=== PATIENT | female | born 1945 | race Caucasian/White ===

== ENCOUNTER 2022-01-14 12:54 | Emergency (ER) | payer MEDICARE, OTHER ==
[2022-01-14 13:13] LABS: BASOPHILS # (AUTO) 0.1 10^3/uL (0.0-0.1); BASOPHILS % (AUTO) 1.1 %; EOSINOPHILS # (AUTO) 0.1 10^3/uL (0.0-0.7); EOSINOPHILS % (AUTO) 1.5 %; HCT - HEMATOCRIT 43.4 % (37.0-47.0); HGB - HEMOGLOBIN 14.2 g/dL (12.0-16.0); LYMPHOCYTES # (AUTO) 1.4 10^3/uL (1.5-3.5); MEAN CORPUSCULAR HEMOGLOBIN 30.1 pg (27.0-31.0); MEAN CORPUSCULAR HGB CONC 32.7 g/dL (32.0-36.0); MEAN CORPUSCULAR VOLUME 92.1 fL (81.0-99.0); MEAN PLATELET VOLUME 11.3 fL (7.9-10.8); MONOCYTES # (AUTO) 0.8 10^3/uL (0.0-1.0); NEUTROPHILS # (AUTO) 5.9 10^3/uL (1.5-6.6); NEUTROPHILS % (AUTO) 70.2 %; PLT - PLATELET COUNT 228 10^3/uL (130-450); RED BLOOD COUNT 4.71 10^6/uL (4.20-5.40); RED CELL DISTRIBUTION WIDTH 13.8 % (12.0-15.0); WHITE BLOOD COUNT 8.4 x10^3/uL (4.8-10.8)
[2022-01-14] MEDS ORDERED: diltiaZEM INJ 5 MG/ML VIAL IVP STA (13:18)
--- NOTE | 2022-01-14 13:19 | ED Physician Documentation ---
PD HPI DYSPNEA - Stated complaint Stated Complaint: IRREG HEART BEAT - Chief complaint Chief Complaint: Cardiac - History obtained from History obtained from: Patient - Additional information Additional information: 76-year-old woman with history of poor vision and eyesight presents by private vehicle for the evaluation of 4 days of shortness of breath. Especially exertional. No history of heart problems. No pedal edema. No history of hypertension. Review of Systems Ten Systems: 10 systems reviewed and negative Constitutional: reports: Fatigue Cardiac: denies: Chest pain / pressure, Palpitations, Pedal edema, Calf pain Respiratory: reports: Dyspnea. denies: Cough PD PAST MEDICAL HISTORY - Present Medications Home Medications: Ambulatory Orders Medication Instructions Recorded Confirmed Apixaban [Eliquis] 1 tab PO BID #60 tablet 01/14/22 dilTIAZem HCL [Diltiazem 24Hr ER 120 mg PO DAILY #30 cap 01/14/22 (Xr)] - Allergies Allergies/Adverse Reactions: Allergies Allergy/AdvReac Type Severity Reaction Status Date / Time No Known Drug Allergies Allergy Verified 01/14/22 13:00 PD ED PE NORMAL - Vitals Vital signs reviewed: Yes (A. fib on the monitor) - General General: Alert and oriented X 3, No acute distress - Neck Neck: Supple, no meningeal sign, No bony TTP - Cardiac Cardiac: Other (Rapid and irregular without murmur) - Respiratory Respiratory: No respiratory distress, Clear bilaterally - Abdomen Abdomen: Non tender - Derm Derm: Normal color, Warm and dry - Extremities Extremities: No edema, No calf tenderness / cord - Neuro Neuro: Alert and oriented X 3, Normal speech Results - Vitals Vitals: Vital Signs - 24 hr 01/14/22 01/14/22 01/14/22 12:55 13:00 13:30 Temperature 36.1 C L 36.5 C Heart Rate 156 H 156 H 86 Respiratory 18 18 17 Rate Blood Pressure 138/108 H 138/108 H 116/74 O2 Saturation 97 97 96 01/14/22 14:00 Temperature Heart Rate 95 Respiratory 24 Rate Blood Pressure 130/100 H O2 Saturation 96 Oxygen O2 Source Room air - EKG (time done) 1310 Rate: Rate (enter#) (138) Rhythm: Atrial fibrillation [place]: Normal QRS: LVH Ischemia: Normal ST segments. No: Non specific changes Computer interpretation: Agree with computer - Labs Labs: Laboratory Tests 01/14/22 01/14/22 01/14/22 13:08 13:08 13:08 WBC 8.4 RBC 4.71 Hgb 14.2 Hct 43.4 MCV 92.1 MCH 30.1 MCHC 32.7 RDW 13.8 Plt Count 228 MPV 11.3 H Neut # (Auto) 5.9 Lymph # (Auto) 1.4 L [place] # (Auto) 0.8 Eos # (Auto) 0.1 Baso # (Auto) 0.1 Absolute Nucleated RBC 0.00 Nucleated RBC % 0.0 PT 15.4 H INR 1.4 H Sodium 138 Potassium 4.0 Chloride 106 Carbon Dioxide 20 L Anion Gap 12.0 BUN 24 H Creatinine 1.2 H Estimated GFR (MDRD) 44 L Glucose 122 H Calcium 9.4 Magnesium 2.0 Total Bilirubin 1.1 H AST 17 ALT 18 Alkaline Phosphatase 42 Total Protein 7.1 Albumin 4.2 Globulin 2.9 Albumin/Globulin Ratio 1.4 TSH 01/14/22 13:08 WBC RBC Hgb Hct MCV MCH MCHC RDW Plt Count MPV Neut # (Auto) Lymph # (Auto) [place] # (Auto) Eos # (Auto) Baso # (Auto) Absolute Nucleated RBC Nucleated RBC % PT INR Sodium Potassium Chloride Carbon Dioxide Anion Gap BUN Creatinine Estimated GFR (MDRD) Glucose Calcium Magnesium Total Bilirubin AST ALT Alkaline Phosphatase Total Protein Albumin Globulin Albumin/Globulin Ratio TSH 3.45 PD MEDICAL DECISION MAKING - ED course ED course: This is a 76-year-old woman who presents with new onset rapid A. fib of 4 days duration by history. As such she is not a candidate for consideration for ED cardioversion given the timeframe. 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 Fairly easy rate control, she is rate controlled after 10 mg of Cardizem IV. I spoke with her physician, Dr. Prajapati by phone who agrees with starting a DOAC and 120 mg of long-acting Cardizem daily. She will arrange for follow-up and echocardiography. Departure - Departure Disposition: 01 Home, Self Care Clinical Impression: Atrial fibrillation Qualifiers: Atrial fibrillation type: persistent (not longstanding) Qualified Code(s): I48.19 - Other persistent atrial fibrillation; I48.1 - Persistent atrial fibrillation Condition: Good Record reviewed to determine appropriate education?: Yes Instructions: Atrial Fibrillation Dc Prescriptions: dilTIAZem HCL [Diltiazem 24Hr ER (Xr)] 120 mg PO DAILY #30 cap Apixaban [Eliquis] 1 tab PO BID #60 tablet Comments: Follow-up with Dr. Prajapati. I sent your prescriptions to [facility] in [place]. We are starting something to keep your heart rate from being too high and a blood thinner. Return for new or worsening symptoms. I expect Dr. Prajapati will likely schedule you for an echocardiogram, and ultrasound of your heart.
[2022-01-14 13:22] LABS: INR 1.4 (0.8-1.2); PT - PROTHROMBIN TIME 15.4 secs (9.9-12.6)
[2022-01-14 13:25] LABS: ALBUMIN 4.2 g/dL (3.2-5.5); ALBUMIN/GLOBULIN RATIO 1.4 (1.0-2.2); BILIRUBIN,TOTAL 1.1 mg/dL (0.2-1.0); CALCIUM 9.4 mg/dL (8.5-10.3); CREATININE 1.2 mg/dL (0.4-1.0); TOTAL PROTEIN 7.1 g/dL (6.7-8.2)
[2022-01-14 14:08] VITALS: BP 130/100
== END 2022-01-14 14:43 | disposition home or self-care (01) ==
LOC: ED 12:54
DX: I48.19 Other persistent atrial fibrillation (principal); Z79.01 Long term (current) use of anticoagulants
CPT/HCPCS: 36415; 80053; 83735; 84443; 85025; 85610; 93005; 96374; 99283

== ENCOUNTER 2022-03-02 14:26 | Emergency (ER) | payer MEDICARE, OTHER ==
[2022-03-02] MEDS ORDERED: diltiaZEM INJ 5 MG/ML VIAL IVP STA ×2 (14:52→16:45)
--- NOTE | 2022-03-02 14:58 | XRAY Report ---
PROCEDURE: Chest 1 View X-Ray INDICATIONS: Chest pain TECHNIQUE: One view of the chest was acquired. COMPARISON: None FINDINGS: Exam limited by patient positioning and AP portable technique. Cardiomegaly with increased central/perihilar interstitial markings and cephalization of pulmonary ve ssels. Although not entirely definitive there is blunting of the right costophrenic angle with hazy v eiling opacity overlying the right lung base suggestive of a possible small pleural effusion. The ple ural spaces are otherwise clear. IMPRESSION: Cardiomegaly with findings suggestive of moderate cardiogenic pulmonary edema and possible small righ t pleural effusion. Reviewed by: Yasir Alfred MD on 03/02/2022 2:56 PM PDT Approved by: Yasir Alfred MD on 03/02/2022 2:56 PM PDT Station ID: [id number]
--- NOTE | 2022-03-02 15:00 | ED Physician Documentation ---
History of Present Illness - Stated complaint Stated Complaint: CP,RAPID HEART RATE,ABD PX - Chief complaint Chief Complaint: Cardiac - Additonal information Additional information: 76-year-old female presents emergency department for evaluation of 2 to 3 days of shortness of air as well as upper abdominal pain. She was seen in this emergency department late December and diagnosed with atrial fib of unknown duration. Started on Cardizem as well as Eliquis. Patient states that she felt one of the medications helped her but the other put her over the edge. It seems that she has not taken the Eliquis for about 2 weeks. 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 She is however alert and speaking full sentences. On the monitor she has A. fib RVR with a rate of 150-160. Nursing staff establishing an IV. Cardizem is ordered. In further conversation with the it appears that when the patient went to have her diltiazem refilled her primary care provider increased her dose from 120 daily to two 120mg extended release capsules daily. It is this dosing that sent the patient over the edge and caused increased dizziness which she stopped taking about 10 days ago. Review of Systems Unable to obtain: Confused Constitutional: denies: Fever, Chills Cardiac: reports: Chest pain / pressure, Palpitations. denies: Pedal edema, Calf pain Respiratory: reports: Reviewed and negative GI: reports: Reviewed and negative : reports: Reviewed and negative Skin: denies: Rash, Lesions Neurologic: denies: Generalized weakness, Focal weakness, Numbness, Headache, Head injury PD PAST MEDICAL HISTORY - Present Medications Home Medications: Ambulatory Orders Medication Instructions Recorded Confirmed Apixaban [Eliquis] 1 tab PO BID #60 tablet 01/14/22 03/02/22 Diltiazem HCl [Cardizem] 120 mg PO DAILY #30 tablet 03/02/22 Furosemide [Lasix] 20 mg PO DAILY 3 Days #3 tablet 03/02/22 dilTIAZem HCL [Diltiazem 24Hr ER 240 mg PO DAILY 03/02/22 03/02/22 (Xr)] - Allergies Allergies/Adverse Reactions: Allergies Allergy/AdvReac Type Severity Reaction Status Date / Time No Known Drug Allergies Allergy Verified 03/02/22 14:37 PD ED PE NORMAL - General General: Alert and oriented X 3, No acute distress - HEENT HEENT: Atraumatic, Moist mucous membranes - Neck Neck: Supple, no meningeal sign, No adenopathy - Cardiac Cardiac: No murmur. 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 Eye Opening: Spontaneous Motor: Obeys Commands Verbal: Oriented GCS Score: 15 Results - Vitals Vitals: Vital Signs - 24 hr 03/02/22 03/02/22 03/02/22 14:29 15:19 15:30 Temperature 36.5 C Heart Rate 152 H 90 87 Respiratory 18 16 24 Rate Blood Pressure 122/96 H 128/102 H 135/101 H O2 Saturation 97 96 97 03/02/22 03/02/22 03/02/22 16:00 16:30 17:00 Temperature 36.6 C Heart Rate 93 102 H 111 H Respiratory 23 16 16 Rate Blood Pressure 121/90 H 131/95 H 128/110 H O2 Saturation 97 97 98 03/02/22 03/02/22 17:30 18:37 Temperature Heart Rate 89 84 Respiratory 14 24 Rate Blood Pressure 127/97 H 118/89 H O2 Saturation 98 96 Oxygen O2 Source Room air - EKG (time done) 1436 Rate: Rate (enter#) (135) Rhythm: Atrial fibrillation [place]: Normal QRS: Normal Ischemia: Normal ST segments Compare to prior EKG: Unchanged from prior EKG Computer interpretation: Agree with computer - Labs Labs: Laboratory Tests 03/02/22 03/02/22 03/02/22 15:00 15:00 15:00 WBC 8.0 RBC 4.77 Hgb 14.1 Hct 43.8 MCV 91.8 MCH 29.6 MCHC 32.2 RDW 14.6 Plt Count 199 MPV 12.2 H Neut # (Auto) 5.7 Lymph # (Auto) 1.4 L [place] # (Auto) 0.8 Eos # (Auto) 0.1 Baso # (Auto) 0.1 Absolute Nucleated RBC 0.00 Nucleated RBC % 0.0 Sodium 139 Potassium 3.9 Chloride 106 Carbon Dioxide 21 Anion Gap 12.0 BUN 23 H Creatinine 1.3 H Estimated GFR (MDRD) 40 L Glucose 105 H Calcium 9.6 Total Bilirubin 1.3 H AST 31 ALT 30 Alkaline Phosphatase 44 Troponin I High Sens 65.4 H* B-Natriuretic Peptide Total Protein 6.7 Albumin 4.1 Globulin 2.6 Albumin/Globulin Ratio 1.6 Lipase 34 03/02/22 03/02/22 15:00 17:00 WBC RBC Hgb Hct MCV MCH MCHC RDW Plt Count MPV Neut # (Auto) Lymph # (Auto) [place] # (Auto) Eos # (Auto) Baso # (Auto) Absolute Nucleated RBC Nucleated RBC % Sodium Potassium Chloride Carbon Dioxide Anion Gap BUN Creatinine Estimated GFR (MDRD) Glucose Calcium Total Bilirubin AST ALT Alkaline Phosphatase Troponin I High Sens 66.5 H* B-Natriuretic Peptide 1493 H Total Protein Albumin Globulin Albumin/Globulin Ratio Lipase - Rads (name of study) cxr Radiology: Final report received (Cardiomegaly with findings suggestive of moderate cardiogenic pulmonary edema and possible small right pleural effusion) PD MEDICAL DECISION MAKING - ED course Complexity details: reviewed results, re-evaluated patient, considered differential, d/w patient ED course: 76-year-old female presents emergency department for evaluation of 2 to 3 days of worsening dyspnea. She was diagnosed with atrial fibrillation in late December. She was started on Cardizem as well as Eliquis. When she saw her primary care provider in follow-up the Cardizem was doubled. Following this patient found that she was extremely dizzy and "fell off." Therefore about 10 days ago she stopped taking both the Eliquis and the Cardizem. Over the last 3 days increasing dyspnea especially with ambulation. On presentation she presents with A. fib RVR heart rate in the 150s. Room air saturations at rest are about 96% and no obvious dyspnea or tachypnea. Screening labs are most significant for an elevated BNP of nearly 1500. No previous for comparison. Her initial high-sensitivity troponin is 65. On report it is 66. Essentially static. I suspect this is a demand ischemia. Chest x-ray is consistent with early CHF and volume overload. Patient was administered 20 mg of Lasix. She was also administered 10 mg of diltiazem which promptly brought her heart rate into the 90s. After a period of rest here in the emergency department of about 90 minutes we did try the patient ambulating in the airway. She did not become hypoxic however she immediately became rather tachycardic in the 120s to the 140s and very dyspneic and thus had to return to bed shortly. Unfortunately there are no beds available at this time for admission. Patient will remain in this emergency department while she continues to diurese. An additional dose of diltiazem 10 mg IV has been ordered as well as her routine dose of 120 mg orally. We will attempt to ambulate her a little later this afternoon and if better tolerated can then consider discharge home. If she remains in the emergency department overnight an echocardiogram will be ordered for the a.m. 1829: I have been notified by nursing staff that following the oral dose of diltiazem the patient was able to adequately ambulate the full length of the hallway without any significant dyspnea. Her heart rate did increase into the 130s while ambulating but again it was well-tolerated. When she returned to bed her heart rate really turned to the 80s and 90s but remained in atrial for. At this point patient is stable for discharge home. She will be resumed on 120 mg of Cardizem daily as well as her Eliquis. Given the findings of volume overload on the chest x-ray an additional 3 days of Lasix will be sent to the pharmacy. She is encouraged close follow-up with her primary care provider Dr. Prajapati she should obtain an echocardiogram as an outpatient to further evaluate her heart failure. Departure - Departure Disposition: 01 Home, Self Care Clinical Impression: Atrial fibrillation with rapid ventricular response, Elevated brain natriuretic peptide (BNP) level, Elevated troponin Congestive heart failure Qualifiers: Heart failure type: unspecified Heart failure chronicity: acute Qualified Code(s): I50.9 - Heart failure, unspecified Dyspnea Qualifiers: Dyspnea type: dyspnea on exertion Qualified Code(s): R06.00 - Dyspnea, unsp ecified Instructions: Atrial Fibrillation Dc Prescriptions: Diltiazem HCl [Cardizem] 120 mg PO DAILY #30 tablet Furosemide [Lasix] 20 mg PO DAILY 3 Days #3 tablet Comments: Arin was seen today in the emergency department because she has been very short of breath and dizzy the last few days. She had stopped taking her diltiazem. It appears that the dose that Dr. Prajapati ordered was not well- tolerated. Because she stopped taking the diltiazem she has developed a mild form of heart failure. I would like her to fill the prescription for the Lasix and take every day for the next 3 days only. This will cause her to pee more. 9 she should resume taking the diltiazem 120 mg only once daily. She should also resume taking the Eliquis this is the blood thinner to help prevent clots and strokes and atrial fibrillation. Please discuss this ED visit with Dr. Prajapati. She should be referred for an outpatient echocardiogram for further evaluation of her heart.
[2022-03-02 15:15] LABS: BASOPHILS # (AUTO) 0.1 10^3/uL (0.0-0.1); EOSINOPHILS # (AUTO) 0.1 10^3/uL (0.0-0.7); EOSINOPHILS % (AUTO) 1.6 %; HCT - HEMATOCRIT 43.8 % (37.0-47.0); HGB - HEMOGLOBIN 14.1 g/dL (12.0-16.0); LYMPHOCYTES # (AUTO) 1.4 10^3/uL (1.5-3.5); LYMPHOCYTES % (AUTO) 16.9 %; MEAN CORPUSCULAR HEMOGLOBIN 29.6 pg (27.0-31.0); MEAN CORPUSCULAR HGB CONC 32.2 g/dL (32.0-36.0); MEAN CORPUSCULAR VOLUME 91.8 fL (81.0-99.0); MEAN PLATELET VOLUME 12.2 fL (7.9-10.8); MONOCYTES # (AUTO) 0.8 10^3/uL (0.0-1.0); MONOCYTES % (AUTO) 10.1 %; NEUTROPHILS # (AUTO) 5.7 10^3/uL (1.5-6.6); NEUTROPHILS % (AUTO) 70.3 %; PLT - PLATELET COUNT 199 10^3/uL (130-450); RED BLOOD COUNT 4.77 10^6/uL (4.20-5.40); RED CELL DISTRIBUTION WIDTH 14.6 % (12.0-15.0)
[2022-03-02] MEDS ORDERED: FUROSEMIDE 20 MG/2 ML VIAL IVP STA (15:33)
[2022-03-02 15:47] LABS: ALBUMIN 4.1 g/dL (3.2-5.5); ALBUMIN/GLOBULIN RATIO 1.6 (1.0-2.2); BILIRUBIN,TOTAL 1.3 mg/dL (0.2-1.0); CALCIUM 9.6 mg/dL (8.5-10.3); CREATININE 1.3 mg/dL (0.4-1.0); POTASSIUM 3.9 mmol/L (3.5-5.0); TOTAL PROTEIN 6.7 g/dL (6.7-8.2)
[2022-03-02] MEDS ORDERED: diltiaZEM 30 MG TABLET PO STA (17:06)
[2022-03-02] MEDS ORDERED: APIXABAN 5 MG TABLET PO STA (17:14)
[2022-03-02 19:30] VITALS: BP 108/82
== END 2022-03-02 19:29 | disposition home or self-care (01) ==
LOC: ED 14:26
DX: I48.20 Chronic atrial fibrillation, unspecified (principal); R06.09 Other forms of dyspnea; I50.9 Heart failure, unspecified; R77.8 Other specified abnormalities of plasma proteins; R79.89 Other specified abnormal findings of blood chemistry
CPT/HCPCS: 36415; 71045; 80053; 83690; 83880; 84484; 85025; 93005; 96374; 96375; 96376; 99284; A9270

== ENCOUNTER 2022-05-21 07:50 | Outpatient (CLI) | payer MEDICARE, OTHER | END 2022-05-21 07:51 | disposition critical access hospital (66) | LOC: EMS 07:50 | DX: I48.91 Unspecified atrial fibrillation (principal) | CPT/HCPCS: A0425; A0429 ==

== ENCOUNTER 2022-05-21 08:03 | Emergency (ER) | payer MEDICARE, OTHER ==
[2022-05-21] MEDS ORDERED: diltiaZEM INJ 5 MG/ML VIAL IVP STA (08:37)
[2022-05-21 09:00] LABS: BASOPHILS # (AUTO) 0.1 10^3/uL (0.0-0.1); BASOPHILS % (AUTO) 0.8 %; EOSINOPHILS % (AUTO) 0.4 %; HCT - HEMATOCRIT 45.2 % (37.0-47.0); HGB - HEMOGLOBIN 15.1 g/dL (12.0-16.0); LYMPHOCYTES # (AUTO) 0.9 10^3/uL (1.5-3.5); LYMPHOCYTES % (AUTO) 12.6 %; MEAN CORPUSCULAR HEMOGLOBIN 30.3 pg (27.0-31.0); MEAN CORPUSCULAR HGB CONC 33.4 g/dL (32.0-36.0); MEAN CORPUSCULAR VOLUME 90.8 fL (81.0-99.0); MONOCYTES # (AUTO) 0.7 10^3/uL (0.0-1.0); MONOCYTES % (AUTO) 9.4 %; NEUTROPHILS # (AUTO) 5.6 10^3/uL (1.5-6.6); NEUTROPHILS % (AUTO) 76.5 %; PLT - PLATELET COUNT 228 10^3/uL (130-450); RED BLOOD COUNT 4.98 10^6/uL (4.20-5.40); RED CELL DISTRIBUTION WIDTH 15.9 % (12.0-15.0); WHITE BLOOD COUNT 7.3 x10^3/uL (4.8-10.8)
--- NOTE | 2022-05-21 09:05 | ED Physician Documentation ---
History of Present Illness - Stated complaint Stated Complaint: SOA/AFIB - Chief complaint Chief Complaint: Cardiac - History obtained from History obtained from: Patient - History of Present Illness Timing: How many days ago (Several days) Pain level max: 1 Pain level now: 0 - Additonal information Additional information: Patient is a 77-year-old female who presents to the emergency department stating she has a history of atrial fibrillation as well as heart failure. She had been on Lasix and diltiazem, but she felt she was not tolerating the diltiazem well so they changed her to metoprolol. She has been off of her medications for several days, but did take a dose of metoprolol last night. She states that she is mainly sitting up in a recliner. Having increased difficulty with lying flat. Worse with lying down, better sitting up. No fevers. No cough. States had a small amount of chest pressure last night, lasted for 1 to 2 minutes. Center of the chest, nonradiating. She states that the pressure was "very slight". Review of Systems Constitutional: denies: Fever, Chills Respiratory: denies: Cough GI: denies: Nausea, Vomiting, Diarrhea Skin: denies: Rash Musculoskeletal: denies: Neck pain, Back pain Neurologic: denies: Headache PD PAST MEDICAL HISTORY - Past Medical History Past Medical History: Yes Cardiovascular: Congestive heart failure, Atrial fibrillation Other Past Medical History: Legally blind, hard of hearing - Present Medications Home Medications: Ambulatory Orders Medication Instructions Recorded Confirmed Apixaban [Eliquis] 1 tab PO BID #60 tablet 01/14/22 03/02/22 Diltiazem HCl [Cardizem] 120 mg PO DAILY #30 tablet 03/02/22 Furosemide [Lasix] 20 mg PO DAILY 3 Days #3 tablet 03/02/22 dilTIAZem HCL [Diltiazem 24Hr ER 240 mg PO DAILY 03/02/22 03/02/22 (Xr)] diltiaZEM [Cardizem] 30 mg PO Q8H #90 tablet 05/21/22 - Allergies Allergies/Adverse Reactions: Allergies Allergy/AdvReac Type Severity Reaction Status Date / Time No Known Drug Allergies Allergy Verified 03/02/22 14:37 - Living Situation Living Arrangement: reports: At home - Social History Does the pt have substance abuse?: No PD ED PE NORMAL - Vitals Vital signs reviewed: Yes - General General: Alert and oriented X 3, No acute distress - HEENT HEENT: PERRL, Moist mucous membranes - Neck Neck: Supple, no meningeal sign - Cardiac Cardiac: Other (Irregular, tachycardic) - Respiratory Respiratory: No respiratory distress, Other (Mild rhonchi bilaterally) - Abdomen Abdomen: Soft, Non tender, Non distended - Derm Derm: Warm and dry, No rash - Extremities Extremities: No calf tenderness / cord, Other (2+ bilateral lower extremity pitting edema) - Neuro Neuro: Alert and oriented X 3 - Psych Psych: Normal mood, Normal affect Results - Vitals Vitals: Vital Signs - 24 hr 05/21/22 05/21/22 05/21/22 08:10 10:41 11:50 Temperature 36.6 C Heart Rate 126 H 93 96 Respiratory 26 H 11 L 19 Rate Blood Pressure 117/98 H 120/97 H 121/97 H O2 Saturation 98 99 96 Oxygen O2 Source Room air - EKG (time done) 0859 Rate: Rate (enter#) (123) Rhythm: Atrial fibrillation [place]: Normal QRS: LVH Ischemia: Non specific changes - Labs Labs: Laboratory Tests 05/21/22 05/21/22 05/21/22 08:54 08:54 08:54 WBC 7.3 RBC 4.98 Hgb 15.1 Hct 45.2 MCV 90.8 MCH 30.3 MCHC 33.4 RDW 15.9 H Plt Count 228 MPV 12.0 H Neut # (Auto) 5.6 Lymph # (Auto) 0.9 L [place] # (Auto) 0.7 Eos # (Auto) 0.0 Baso # (Auto) 0.1 Absolute Nucleated RBC 0.00 Nucleated RBC % 0.0 Sodium 138 Potassium 3.8 Chloride 109 Carbon Dioxide 18 L Anion Gap 11.0 BUN 30 H Creatinine 1.4 H Estimated GFR (MDRD) 37 L Glucose 107 H Calcium 9.7 Total Bilirubin 1.3 H AST 42 ALT 33 Alkaline Phosphatase 52 Troponin I High Sens 28.1 H* B-Natriuretic Peptide Total Protein 6.3 L Albumin 4.0 Globulin 2.3 Albumin/Globulin Ratio 1.7 Lipase 36 05/21/22 08:54 WBC RBC Hgb Hct MCV MCH MCHC RDW Plt Count MPV Neut # (Auto) Lymph # (Auto) [place] # (Auto) Eos # (Auto) Baso # (Auto) Absolute Nucleated RBC Nucleated RBC % Sodium Potassium Chloride Carbon Dioxide Anion Gap BUN Creatinine Estimated GFR (MDRD) Glucose Calcium Total Bilirubin AST ALT Alkaline Phosphatase Troponin I High Sens B-Natriuretic Peptide 3380 H Total Protein Albumin Globulin Albumin/Globulin Ratio Lipase - Rads (name of study) cxr Radiology: Final report received, EMP read contemporaneously, See rad report (Costophrenic angle blunting consistent with minimal effusions. ) PD MEDICAL DECISION MAKING - ED course Complexity details: reviewed results, re-evaluated patient, considered differential, d/w patient ED course: 77-year-old female with atrial fibrillation with rapid ventricular response as well as what appears to be a CHF exacerbation. She has been off all of her medications for a while. She is supposed to resume her Lasix today. Given a dose here. No hypoxia or respiratory distress. She was also given a dose of diltiazem and her heart rate was well controlled. The patient states that she w ishes to be trialed back on short acting Cardizem as she feels that she tolerated that better than metoprolol. We will place her back on short acting diltiazem. Patient is ambulating without difficulty. Patient is well- appearing, nontoxic. Patient counseled regarding signs and symptoms for which I believe and urgent re-evaluation would be necessary. Patient with good understanding of and agreement to plan and is comfortable going home at this time This document was made in part using voice recognition software. While efforts are made to proofread this document, sound alike and grammatical errors may occur. Departure - Departure Disposition: 01 Home, Self Care Clinical Impression: Atrial fibrillation with rapid ventricular response Congestive heart failure Qualifiers: Heart failure type: unspecified Heart failure chronicity: acute on chronic Qualified Code(s): I50.9 - Heart failure, unspecified Condition: Good Instructions: ED Afib, ED CHF General Follow-Up: Trina Prajapati MD [Primary Care Provider] - Within 1 week Prescriptions: diltiaZEM [Cardizem] 30 mg PO Q8H #90 tablet Comments: Your medications were sent to [facility] in [place]. We will trial you back on the short acting diltiazem rather than your metoprolol. So please stop the metoprolol. You also need to start the Lasix that you are doctor has prescribed you. This will help to decrease the fluid buildup. Please return if you worsen. Discharge Date/Time: 05/21/22 11:52
[2022-05-21 09:12] LABS: ALBUMIN/GLOBULIN RATIO 1.7 (1.0-2.2); BILIRUBIN,TOTAL 1.3 mg/dL (0.2-1.0); CALCIUM 9.7 mg/dL (8.5-10.3); CREATININE 1.4 mg/dL (0.4-1.0); POTASSIUM 3.8 mmol/L (3.5-5.0); TOTAL PROTEIN 6.3 g/dL (6.7-8.2)
--- OUTSIDE RECORDS SUMMARY | 2022-05-21 09:12 | EXTERNAL MEDICAL SUMMARY RPT | Continuity of Care Document ---
:1945 Author Organization [facility] Address [address] [place] [address] Phone Allergies No information. Encounters No information. Functional Status No information. Immunizations No information. Medications No information. Problems No information. Procedures No information. Results/Labs test date author facility value unit interpret ation Result panel 1 (unknown) (no (unknown) (unknown) (no value) (units (unk nown) date) unknown) (unknown) (no (unknown) (unknown) [address] [place] [address] (units (unknown) date) unknown) (unknown) (no (unknown) (unknown) sev ratio: 0.37 (units (unknown) date) unknown) (unknown) (no (unknown) (unknown) [place], [place] (units ( unknown) date) [id number] unknown) (unknown) (no (unknown) (unknown) Echocardiogram (units (unknown) date) Report unknown) (unknown) (no (unknown) (unknown) Echocardiography (units (unknown) date) Report unknown) (unknown) (no (unknown) (unknown) Electronically (units (unknown) date) signed by: Timothy Gtz on 03/24/2022 02:47 (unknown) (no (unknown) (unknown) [place] (units (unkno wn) date) unknown) (unknown) (no (unknown) (unknown) [facility] (units (unknown) date) unknown) (unknown) (no (unknown) (unknown) Signed (units (unkno wn) date) unknown) (unknown) (no (unknown) (unknown) (no value) (units (unk nown) date) unknown) (unknown) (no (unknown) (unknown) +---------+ (units (un known) date) [phone] unknown) +---------+ (unknown) (no (unknown) (unknown) +---------+ (units (un known) date) Hospital unknown) +---------+ (unknown) (no (unknown) (unknown) + (units (unknown) date) unknown) ---+ (unknown) (no (unknown) (unknown) 03/24/22 (units (unkno wn) date) unknown) (unknown) (no (unknown) (unknown) : : 1211 (units (unknown) date) . : : unknown) (unknown) (no (unknown) (unknown) : : 164[address] (units (unknown) date) : : unknown) (unknown) (no (unknown) (unknown) : : (units (unkno wn) date) VALERIE Estrada : unknown) : (unknown) (no (unknown) (unknown) : : Phone: (units (unknown) date) [phone] : : unknown) (unknown) (no (unknown) (unknown) :HARMAN C (units (unkno wn) date) Performed By: unknown) Jesusita Nettles : (unknown) (no (unknown) (unknown) :Account #: (units (un known) date) [id number] unknown) Gender: Female BSA: 2.1 m2 : (unknown) (no (unknown) (unknown) :: 1945 (units (unknown) date) Age: 76 yrs BP: unknown) 124/78 mmHg: (unknown) (no (unknown) (unknown) :[facility] MRN #: (units (unknown) date) [id number] unknown) ReadingLocation: Weight: 205 lb : (unknown) (no (unknown) (unknown) :Name: WILLIS (units (unknown) date) [place] Study unknown) Date: 03/24/2022 Height: 67.5 in: (unknown) (no (unknown) (unknown) :Ordering (units (unkn own) date) Physician: unknown) SARAH, : (unknown) (no (unknown) (unknown) :Reason For Study: (units (unknown) date) ATRIAL FIBRILLATION unknown) : (unknown) (no (unknown) (unknown) :Referring: (units (un known) date) HARMAN SMITH unknown) : (unknown) (no (unknown) (unknown) Ao V2 VTI: 22.8 cm (units (unknown) date) GUILLE(V,D): 1.7 unknown) cm2 (unknown) (no (unknown) (unknown) Ao V2 max: 127.3 (units (unknown) date) cm/sec LVOT Max unknown) Prince: 62.0 cm/sec (unknown) (no (unknown) (unknown) Ao V2 mean: 97.0 (units (unknown) date) cm/sec LV V1 max unknown) P.5 mmHg (unknown) (no (unknown) (unknown) Ao max P.5 (units (unknown) date) mmHg LV V1 VTI: unknown) 8.6 cm (unknown) (no (unknown) (unknown) Ao mean P.2 (units (unknown) date) mmHg GUILLE(I,D): unknown) 1.3 cm2 (unknown) (no (unknown) (unknown) Aortic Valve: (units ( unknown) date) The aortic valve is unknown) trileaflet. The aortic valve is mildly (unknown) (no (unknown) (unknown) Atria: The left (units (unknown) date) atrium is severely unknown) dilated. The right atrium is mildly (unknown) (no (unknown) (unknown) Diastolic function (units (unknown) date) could not be unknown) accurately assessed due to atrial (unknown) (no (unknown) (unknown) Doppler (units (unkno wn) date) Measurements + unknown) Calculations (unknown) (no (unknown) (unknown) E/E' lat: 18.1 (units (unknown) date) unknown) (unknown) (no (unknown) (unknown) E/E' med: 29.7 (units (unknown) date) unknown) (unknown) (no (unknown) (unknown) E/e' average: 23.9 (units (unknown) date) unknown) (unknown) (no (unknown) (unknown) EPSS: 1.3 cm Ao (units (unknown) date) Arch Diam (Prox unknown) Trans): 3.4 cm (unknown) (no (unknown) (unknown) FS: 5.8 % asc (units (unknown) date) Aorta Diam: 3.8 cm unknown) (unknown) (no (unknown) (unknown) Great Vessels: (units (unknown) date) The aortic root is unknown) normal size. The ascending aorta is at the (unknown) (no (unknown) (unknown) IVSd: 1.1 cm (units (u nknown) date) unknown) (unknown) (no (unknown) (unknown) Interpretation (units (unknown) date) Summary unknown) (unknown) (no (unknown) (unknown) LA A2 area: 35.0 (units (unknown) date) cm2 RA long unknown) axis: 6.0 cm (unknown) (no (unknown) (unknown) LA A4 area: 42.3 (units (unknown) date) cm2 RA area: unknown) 23.0 cm2 (unknown) (no (unknown) (unknown) LA length (vol): (units (unknown) date) 7.7 cm RA vol: unknown) 75.2 ml (unknown) (no (unknown) (unknown) LA vol index: 79.6 (units (unknown) date) ml/m2 IVC diam: unknown) 1.9 cm (unknown) (no (unknown) (unknown) LA vol: 163.5 ml (units (unknown) date) RA : 36.6 ml/m2 unknown) (unknown) (no (unknown) (unknown) LVIDd: 5.2 cm (units ( unknown) date) LVOT diam: 2.1 cm unknown) (unknown) (no (unknown) (unknown) LVIDs: 4.9 cm (units ( unknown) date) Ao root diam: 3.5 unknown) cm (unknown) (no (unknown) (unknown) LVPWd: 0.90 cm (units (unknown) date) unknown) (unknown) (no (unknown) (unknown) Lat Peak E' Prince: (units (unknown) date) 7.3 cm/sec unknown) (unknown) (no (unknown) (unknown) Left Ventricle: (units (unknown) date) The left ventricle unknown) is normal in size. There is mild (unknown) (no (unknown) (unknown) MMode/2D (units (unkno wn) date) Measurements + unknown) Calculations (unknown) (no (unknown) (unknown) MV A max prince: 3.7 (units (unknown) date) cm/sec TR max unknown) P.7 mmHg (unknown) (no (unknown) (unknown) MV E max prince: (units ( unknown) date) 131.0 cm/sec unknown) TR max prince: 263.0 cm/sec (unknown) (no (unknown) (unknown) MV E/A: 35.3 PA (units (unknown) date) pr(Accel): 44.7 unknown) mmHg (unknown) (no (unknown) (unknown) MV dec time: 0.14 (units (unknown) date) sec unknown) (unknown) (no (unknown) (unknown) Med Peak E' Prince: (units (unknown) date) 4.4 cm/sec unknown) (unknown) (no (unknown) (unknown) Mitral Valve: (units ( unknown) date) There is moderate unknown) mitral annular calcification. The mitral (unknown) (no (unknown) (unknown) No prior studies (units (unknown) date) available for unknown) comparison. (unknown) (no (unknown) (unknown) Pericardium/ (units (u nknown) date) Pleura There is unknown) no pericardial effusion. There is no pleural (unknown) (no (unknown) (unknown) Procedure: A (units (unknown) date) two-dimensional unknown) transthoracic echocardiogram with color flow (unknown) (no (unknown) (unknown) Pulmonic Valve: (units (unknown) date) The pulmonic valve unknown) leaflets are thin and pliable; valve (unknown) (no (unknown) (unknown) RVD1 (basal): 4.3 (units (unknown) date) cm unknown) (unknown) (no (unknown) (unknown) RVD2 (mid): 3.4 cm (units (unknown) date) unknown) (unknown) (no (unknown) (unknown) Reading (units (unkno wn) date) Physician:PM unknown) (unknown) (no (unknown) (unknown) Right Ventricle: (units (unknown) date) The right ventricle unknown) is mildly dilated. Right ventricular (unknown) (no (unknown) (unknown) Right ventricular (units (unknown) date) systolic function unknown) is mildly reduced. (unknown) (no (unknown) (unknown) SV(LVOT): 30.6 ml (units (unknown) date) unknown) (unknown) (no (unknown) (unknown) TAPSE: 1.4 cm (units ( unknown) date) unknown) (unknown) (no (unknown) (unknown) The ejection (units (u nknown) date) fraction is unknown) estimated to be 15-20%. (unknown) (no (unknown) (unknown) The left atrium is (units (unknown) date) severely dilated. unknown) (unknown) (no (unknown) (unknown) The right atrium (units (unknown) date) is mildly dilated. unknown) (unknown) (no (unknown) (unknown) The right (units (unkn own) date) ventricular unknown) systolic pressure is estimated to be at least 31 mmHg (unknown) (no (unknown) (unknown) There is mild to (units (unknown) date) moderate mitral unknown) regurgitation. (unknown) (no (unknown) (unknown) There is moderate (units (unknown) date) tricuspid unknown) regurgitation. (unknown) (no (unknown) (unknown) There is severe (units (unknown) date) global hypokinesis unknown) of the left ventricle. (unknown) (no (unknown) (unknown) Tricuspid Valve: (units (unknown) date) The tricuspid valve unknown) leaflets are thin and pliable. There is (unknown) (no (unknown) (unknown) (units (unknown) date) unknown) ___ (unknown) (no (unknown) (unknown) and Doppler was (units (unknown) date) performed. The unknown) study quality was technically good. There is no (unknown) (no (unknown) (unknown) based on an (units (un known) date) estimated right unknown) atrial pressure of 3 mm Hg. (unknown) (no (unknown) (unknown) be 15-20%. There (units (unknown) date) is severe global unknown) hypokinesis of the left ventricle. Diastolic (unknown) (no (unknown) (unknown) calcified. There (units (unknown) date) is mild to unknown) moderately reduced leaflet mobility. There is no (unknown) (no (unknown) (unknown) concentric left (units (unknown) date) ventricular unknown) hypertrophy. The ejection fraction is estimated to (unknown) (no (unknown) (unknown) dilated. There is (units (unknown) date) no Doppler evidence unknown) for an interatrial shunt. (unknown) (no (unknown) (unknown) effusion. (units (unkn own) date) unknown) (unknown) (no (unknown) (unknown) estimated to be at (units (unknown) date) least 31 mmHg based unknown) on an estimated right atrial pressure (unknown) (no (unknown) (unknown) fibrillation with (units (unknown) date) heart rates between unknown) 95-120 bpm during the exam. (unknown) (no (unknown) (unknown) fibrillation. (units ( unknown) date) unknown) (unknown) (no (unknown) (unknown) function could not (units (unknown) date) be accurately unknown) assessed due to atrial fibrillation. (unknown) (no (unknown) (unknown) greater than 50% (units (unknown) date) with a sniff. This unknown) suggests a low right atrial pressure of 3 (unknown) (no (unknown) (unknown) hemodynamically (units (unknown) date) significant unknown) valvular aortic stenosis. There is trace aortic (unknown) (no (unknown) (unknown) mm Hg. (units (unkno wn) date) unknown) (unknown) (no (unknown) (unknown) moderate mitral (units (unknown) date) regurgitation. unknown) (unknown) (no (unknown) (unknown) moderate tricuspid (units (unknown) date) regurgitation. The unknown) right ventricular systolic pressure is (unknown) (no (unknown) (unknown) motion is normal. (units (unknown) date) There is mild unknown) pulmonic regurgitation. (unknown) (no (unknown) (unknown) of 3 mm Hg. (units (un known) date) unknown) (unknown) (no (unknown) (unknown) prior (units (unkno wn) date) echocardiogram unknown) noted for this patient. The patient was in atrial (unknown) (no (unknown) (unknown) regurgitation. (units (unknown) date) unknown) (unknown) (no (unknown) (unknown) systolic function (units (unknown) date) is mild to unknown) moderately reduced. (unknown) (no (unknown) (unknown) upper limits of (units (unknown) date) normal in size. The unknown) IVC is of normal diameter and collapses (unknown) (no (unknown) (unknown) valve leaflets (units (unknown) date) appear moderately unknown) thickened, but open well. There is mild to (unknown) (no (unknown) (unknown) [id number] (units (unkn own) date) unknown) (unknown) (no (unknown) (unknown) Accession Number: (units (unknown) date) [id number] unknown) (unknown) (no (unknown) (unknown) Age/Sex: 76 / F (units (unknown) date) Date of Service: unknown) (unknown) (no (unknown) (unknown) : 1945 (units (unknown) date) Acct:[id number] unknown) (unknown) (no (unknown) (unknown) GenericComposite[ (units (unknown) date) GUILLE indexed to unknown) BSA (cm^2/m^2): 0.65 ] (unknown) (no (unknown) (unknown) GenericComposite[ (units (unknown) date) LV perkins. unknown) diameter/BSA (cm/m^2): 2.5 ] (unknown) (no (unknown) (unknown) GenericComposite[ (units (unknown) date) LV sys. unknown) diameter/BSA (cm/m^2): 2.4 ] (unknown) (no (unknown) (unknown) Loc: [facility] (units (unkn own) date) unknown) (unknown) (no (unknown) (unknown) Ordering Provider: (units (unknown) date) Harman Casey MD unknown) (unknown) (no (unknown) (unknown) Patient: (units (unkno wn) date) Kenton Willis unknown) MR#: [id number] (unknown) (no (unknown) (unknown) Procedure: EC echo (units (unknown) date) doppler complete unknown) Social History No information. Vital Signs No information.
--- NOTE | 2022-05-21 09:15 | XRAY Report ---
PROCEDURE: Chest 1 View X-Ray INDICATIONS: Chest Pain TECHNIQUE: One view of the chest was acquired. COMPARISON: Chest x-ray 03/02/2022 FINDINGS: Surgical changes and devices: None. Lungs and pleura: There is blunting of the costophrenic angles bilaterally. Mediastinum: Mediastinal contours appear normal. Heart size is enlarged. Bones and chest wall: No suspicious bony lesions. Overlying soft tissues appear unremarkable. IMPRESSION: Costophrenic angle blunting consistent with minimal effusions. Reviewed by: Loraine Shanks MD on 05/21/2022 9:14 AM PDT Approved by: Loraine Shanks MD on 05/21/2022 9:14 AM PDT Station ID: [id number]
[2022-05-21] MEDS ORDERED: FUROSEMIDE 40 MG/4 ML VIAL IVP STA (09:36)
[2022-05-21 11:52] VITALS: BP 121/97
== END 2022-05-21 11:52 | disposition home or self-care (01) ==
LOC: EDBD → EDUNIT# → ED 08:03
DX: I48.91 Unspecified atrial fibrillation (principal); I50.9 Heart failure, unspecified; Z79.01 Long term (current) use of anticoagulants
CPT/HCPCS: 36415; 80053; 83690; 83880; 84484; 85025; 93005; 96374; 96375; 99284

== ENCOUNTER 2022-06-25 15:04 | Inpatient (IN) | payer MEDICARE, OTHER ==
[2022-06-25] MEDS ORDERED: METOPROLOL 5 MG/5 ML VIAL IVP STA ×2 (15:38→18:07)
[2022-06-25 15:59] LABS: BASOPHILS # (AUTO) 0.1 10^3/uL (0.0-0.1); EOSINOPHILS # (AUTO) 0.1 10^3/uL (0.0-0.7); HCT - HEMATOCRIT 44.7 % (37.0-47.0); HGB - HEMOGLOBIN 15.1 g/dL (12.0-16.0); LYMPHOCYTES % (AUTO) 14.5 %; MEAN CORPUSCULAR HEMOGLOBIN 30.3 pg (27.0-31.0); MEAN CORPUSCULAR HGB CONC 33.8 g/dL (32.0-36.0); MEAN CORPUSCULAR VOLUME 89.8 fL (81.0-99.0); MEAN PLATELET VOLUME 11.8 fL (7.9-10.8); MONOCYTES # (AUTO) 0.8 10^3/uL (0.0-1.0); MONOCYTES % (AUTO) 11.1 %; NEUTROPHILS # (AUTO) 5.1 10^3/uL (1.5-6.6); NEUTROPHILS % (AUTO) 72.1 %; PLT - PLATELET COUNT 247 10^3/uL (130-450); RED BLOOD COUNT 4.98 10^6/uL (4.20-5.40); RED CELL DISTRIBUTION WIDTH 15.4 % (12.0-15.0); WHITE BLOOD COUNT 7.1 x10^3/uL (4.8-10.8)
--- NOTE | 2022-06-25 16:08 | XRAY Report ---
PROCEDURE: Chest 1 View X-Ray INDICATIONS: dyspnea TECHNIQUE: One view of the chest was acquired. COMPARISON: 06/07/2022, 03/02/2022 FINDINGS: Surgical changes and devices: None. Lungs and pleura: There is now seen a moderate right-sided pleural effusion. Overlying artifact opac ity can be seen. There is mild blunting of the left costophrenic angle. No pneumothorax is seen. Low lung volumes can be seen, causing a crowded appearance to the lung markings. Mild generalized inters titial prominence can be seen. Mediastinum: Mediastinal contours appear normal. Heart size is moderately enlarged. Bones and chest wall: No suspicious bony lesions. Age-appropriate degenerative changes are seen. Overlying soft tissues appear unremarkable. IMPRESSION: Moderate right-sided pleural effusion with likely small left-sided pleural effusion. There is also in terstitial prominence and cardiomegaly. Please consider CHF. Reviewed by: Jose Luciano MD on 06/25/2022 3:06 PM [facility] Approved by: Jose Luciano MD on 06/25/2022 3:06 PM [facility] Station ID: [id number]
--- NOTE | 2022-06-25 16:09 | ED Physician Documentation ---
History of Present Illness - Stated complaint Stated Complaint: HIGH HR - Chief complaint Chief Complaint: Cardiac - History obtained from History obtained from: Patient - History of Present Illness Timing: Chronic - Additonal information Additional information: 77-year-old female with history of A. fib, congestive heart failure, legally blind, hard of hearing presents by private vehicle for rapid heart rate. Patient states that she has had difficulty controlling her heart rate and her line production cook sent her in for evaluation and medical adjustment. She states she is on short acting diltiazem, which initially helped, but does not seem to be helping anymore. She was supposed to be on Eliquis, but she states that it made her "too tired", and she is no longer on any anticoagulation. She reports shortness of breath that is chronic. Review of Systems Ten Systems: 10 systems reviewed and negative Constitutional: denies: Fever, Chills Cardiac: reports: Palpitations. denies: Chest pain / pressure Respiratory: reports: Dyspnea. denies: Cough, Wheezing Skin: denies: Rash, Lesions Neurologic: denies: Generalized weakness, Focal weakness, Numbness PD PAST MEDICAL HISTORY - Past Medical History Cardiovascular: Congestive heart failure, Atrial fibrillation - Present Medications Home Medications: Ambulatory Orders Medication Instructions Recorded Confirmed Apixaban [Eliquis] 1 tab PO BID #60 tablet 01/14/22 03/02/22 Diltiazem HCl [Cardizem] 120 mg PO DAILY #30 tablet 03/02/22 Furosemide [Lasix] 20 mg PO DAILY 3 Days #3 tablet 03/02/22 dilTIAZem HCL [Diltiazem 24Hr ER 240 mg PO DAILY 03/02/22 03/02/22 (Xr)] diltiaZEM [Cardizem] 30 mg PO Q8H #90 tablet 05/21/22 - Allergies Allergies/Adverse Reactions: Allergies Allergy/AdvReac Type Severity Reaction Status Date / Time No Known Drug Allergies Allergy Verified 06/25/22 15:15 - Social History Does the pt smoke?: No Smoking Status: Never smoker Does the pt have substance abuse?: No PD ED PE NORMAL - Vitals Vital signs reviewed: Yes - General General: Alert and oriented X 3, No acute distress, Other (Appears chronically unwell, frail) - HEENT HEENT: Atraumatic, PERRL, EOMI - Neck Neck: Supple, no meningeal sign, No bony TTP - Cardiac Cardiac: Strong equal pulses, Other (Tachycardia, irregularly irregular) - Respiratory Respiratory: Other (Decreased breath sounds bilateral bases) - Abdomen Abdomen: Soft, Non tender, Non distended - Derm Derm: No rash, Other (Pale) - Extremities Extremities: No deformity, Other (4+ pitting edema to thighs) - Neuro Neuro: Alert and oriented X 3, material expediter 2-12 intact - Psych Psych: Normal mood, Normal affect Results - Vitals Vitals: Vital Signs - 24 hr 06/25/22 06/25/22 06/25/22 15:15 16:09 16:30 Temperature 36.5 C Heart Rate 143 H 110 H 116 H Respiratory 16 25 H 27 H Rate Blood Pressure 113/64 87/67 L 91/80 Blood Pressure [Left] O2 Saturation 98 92 95 06/25/22 06/25/22 06/25/22 17:00 17:30 18:00 Temperature Heart Rate 125 H 121 H 129 H Respiratory 28 H 26 H 30 H Rate Blood Pressure 94/81 H 102/82 H 122/99 H Blood Pressure [Left] O2 Saturation 96 93 84 L 06/25/22 06/25/22 06/25/22 18:15 18:20 18:25 Temperature Heart Rate 129 H 126 H 128 H Respiratory 29 H 25 H 30 H Rate Blood Pressure 100/88 H 107/90 H 107/90 H Blood Pressure [Left] O2 Saturation 92 95 96 06/25/22 06/25/22 06/25/22 18:30 18:35 19:00 Temperature Heart Rate 124 H 120 H 126 H Respiratory 28 H 29 H 25 H Rate Blood Pressure 102/87 H 96/79 109/86 H Blood Pressure [Left] O2 Saturation 94 93 93 06/25/22 06/25/22 06/25/22 19:20 19:25 19:30 Temperature Heart Rate 126 H 125 H 125 H Respiratory 93 H 25 H 21 Rate Blood Pressure 109/86 H 111/91 H 115/83 H Blood Pressure [Left] O2 Saturation 25 L 93 93 06/25/22 06/25/22 06/25/22 19:35 19:40 19:45 Temperature Heart Rate 127 H 117 H 128 H Respiratory 29 H 28 H 26 H Rate Blood Pressure 108/85 H 99/88 H 99/77 Blood Pressure [Left] O2 Saturation 94 93 93 06/25/22 06/25/22 06/25/22 19:50 20:33 20:37 Temperature Heart Rate 116 H 108 H Respiratory 25 H 28 H Rate Blood Pressure 104/93 H 111/80 Blood Pressure 111/91 H [Left] O2 Saturation 92 93 Oxygen O2 Source Room air - EKG (time done) 1508 Rate: Rate (enter#) (143), Tachy Rhythm: Atrial fibrillation [place]: Normal QRS: Normal Ischemia: Normal ST segments 1924 Rate: Rate (enter#), Tachy Rhythm: Atrial fibrillation [place]: Normal QRS: Normal Ischemia: Normal ST segments - Labs Labs: Laboratory Tests 06/25/22 06/25/22 06/25/22 15:45 15:45 15:45 WBC 7.1 RBC 4.98 Hgb 15.1 Hct 44.7 MCV 89.8 MCH 30.3 MCHC 33.8 RDW 15.4 H Plt Count 247 MPV 11.8 H Neut # (Auto) 5.1 Lymph # (Auto) 1.0 L [place] # (Auto) 0.8 Eos # (Auto) 0.1 Baso # (Auto) 0.1 Absolute Nucleated RBC 0.00 Nucleated RBC % 0.0 PT 17.4 H INR 1.6 H Sodium 133 L Potassium 3.9 Chloride 102 Carbon Dioxide 22 Anion Gap 9.0 BUN 17 Creatinine 1.2 H Estimated GFR (MDRD) 44 L Glucose 112 H Calcium 9.3 Magnesium 1.9 Total Bilirubin 1.5 H AST 18 ALT 16 Alkaline Phosphatase 51 Troponin I High Sens B-Natriuretic Peptide Total Protein 6.4 L Albumin 3.6 Globulin 2.8 Albumin/Globulin Ratio 1.3 TSH 06/25/22 06/25/22 06/25/22 15:45 15:45 15:45 WBC RBC Hgb Hct MCV MCH MCHC RDW Plt Count MPV Neut # (Auto) Lymph # (Auto) [place] # (Auto) Eos # (Auto) Baso # (Auto) Absolute Nucleated RBC Nucleated RBC % PT INR Sodium Potassium Chloride Carbon Dioxide Anion Gap BUN Creatinine Estimated GFR (MDRD) Glucose Calcium Magnesium Total Bilirubin AST ALT Alkaline Phosphatase Troponin I High Sens 151.9 H* B-Natriuretic Peptide 2715 H Total Protein Albumin Globulin Albumin/Globulin Ratio TSH 3.05 06/25/22 19:06 WBC RBC Hgb Hct MCV MCH MCHC RDW Plt Count MPV Neut # (Auto) Lymph # (Auto) [place] # (Auto) Eos # (Auto) Baso # (Auto) Absolute Nucleated RBC Nucleated RBC % PT INR Sodium Potassium Chloride Carbon Dioxide Anion Gap BUN Creatinine Estimated GFR (MDRD) Glucose Calcium Magnesium Total Bilirubin AST ALT Alkaline Phosphatase Troponin I High Sens 167.2 H* B-Natriuretic Peptide Total Protein Albumin Globulin Albumin/Globulin Ratio TSH PD MEDICAL DECISION MAKING - ED course Complexity details: reviewed results, re-evaluated patient, considered differential, d/w patient ED course: Chronically unwell-appearing but not acutely toxic patient presenting for persistent a fib, she is in A. fib with RVR on arrival. She is not anticoagulated, it appears that her home dose of diltiazem is not working. She states that her heart rate has been persistently in the 140s, suspicion is for atrial flutter with 2-1 block. Patient's heart rate did briefly decrease with dose of 5 mg of metoprolol, however her blood pressure dropped to 80s over 60s. Patient remained asymptomatic throughout this, however cannot give additional boluses of metoprolol with his blood pressure. Patient's troponin is elevated, however likely secondary to demand from prolonged tachycardia. Bilateral pleural effusion seen, aggressive diuresis pursued. Patient's blood pressure improved after observation, and an additional 5 mg dose of IV metoprolol was given, however patient's heart rate did not change from 120s. Lower than expected diuresis obtained after lasix, however she is urinating. Patient started on Cardizem drip. During this time the patient was complaining of mild left-sided chest pain, a repeat troponin was drawn, which increased to 167 from 151. Heparin initiated, will attempt to transfer patient for higher level of care. Care of patient signed out to oncoming provider while transfer is pending. - Critical Care Time(min): 45 Time Includes: Direct patient care, Review records, Reassess patient, Document care, Coordinate care Data interpretation: Labs, Pulse ox, CXR, Prior EKG, See progress note Procedures excluded from critical care time: EKG Departure - Departure Disposition: 02 Transfer Acute Care Hosp Clinical Impression: Atrial fibrillation with RVR, Volume overload, NSTEMI (non-ST elevated myocardial infarction) Condition: Serious
[2022-06-25 16:10] LABS: ALBUMIN 3.6 g/dL (3.2-5.5); ALBUMIN/GLOBULIN RATIO 1.3 (1.0-2.2); BILIRUBIN,TOTAL 1.5 mg/dL (0.2-1.0); CALCIUM 9.3 mg/dL (8.5-10.3); CREATININE 1.2 mg/dL (0.4-1.0); MAGNESIUM 1.9 mg/dL (1.7-2.8); POTASSIUM 3.9 mmol/L (3.5-5.0); TOTAL PROTEIN 6.4 g/dL (6.7-8.2)
[2022-06-25 16:27] LABS: INR 1.6 (0.8-1.2); PT - PROTHROMBIN TIME 17.4 secs (9.9-12.6)
[2022-06-25] MEDS ORDERED: FUROSEMIDE 40 MG/4 ML VIAL IVP STA ×2 (16:30→17:49)
[2022-06-25] MEDS ORDERED: diltiaZEM INJ 125 MG in DEXTROSE 5% 100 ML IV STA (18:49)
[2022-06-25] MEDS ORDERED: diltiaZEM INJ 5 MG/ML VIAL ONE (19:19)
[2022-06-25] MEDS ORDERED: HEPARIN 25000UNITS/500ML (D5W) 25,000 UNIT/500 ML BAG IV SCH (20:00)
[2022-06-26] MEDS ORDERED: ACETAMINOPHEN 325 MG TABLET PO PRN (08:24)
--- NOTE | 2022-06-26 09:28 | HISTORY & PHYSICAL EXAMINATION ---
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 Both started when she was young and progressively worsened and she is now legally blind and needs hearing aids in both ears. She has a Hx of atrial fib and probable systolic heart failure. The says her symptoms started in December 2021 with shortness of breath. She has been on oral Cardizem, Eliquis and Entresto and sees Dr. Bangura for Cardiology. She admits to not taking the Eliquis because it made her feel "weak and confused", so it was changed to Xarelto which she has been too afraid to start. She was on Lasix for a short time and cannot remember why that was stopped, and how far back. She has never had a stress test or coronary angio We have no records of an Echo or what her ejection fraction is, but is presumed to be low because of the prescribed Entresto. She wore a Zio patch in December-January of this year, that showed 3 days of HRs at 140 continuous. She has continued to have rapid heart rates and her [employer] advised her to come to the ED and she came yesterday. She was in A. fib-flutter at a rate of 140, her blood pressure was "soft". She was started on a Cardizem drip and heart rate improved to 100 however now has gone up again to 120 and 130. Her other work-up shows that she has anasarca with 4+ edema to her thighs, bilateral pleural effusions, right greater than left, very elevated BNP of 2700, elevated troponins (but troponin results are "flat", and not doubling). She started to get diuresis with IV Lasix given x1 in the ED. She had 1 episode of chest pain while in the ED that stopped on its own. She was then started on a Heparin drip. Initial plan of the ED provider was to have her transferred out to higher level of care. But after the patient had goals of care discussed, she stated she wanted to remain here and not be transferred. The ED provider reached out to the Hospitalist team to have her admitted for continuing treatment of Jeanie. karan with RVR and anasarca. She will be admitted to the ICU on a Cardizem drip. I discussed her CODE BLUE wishes and the patient wants to be a DNR. History - Past Medical History Cardiovascular: reports: Congestive heart failure, Atrial fibrillation Respiratory: reports: None Neuro: reports: Other (Blindness, deafness) Endocrine/Autoimmune: reports: None GI: reports: None BODY LINER: reports: None : reports: None HEENT: reports: Chronic vision loss (From retinitis pigmentosa which started at a young age and should be came completely blind except of bright lights, 2 to 3 years ago), Other (Deafness that started when she was younger and she now wears bilateral hearing aids) Psych: reports: None Musculoskeletal: reports: None Derm: reports: None MRSA Hx?: No - Past Surgical History HEENT: reports: Other (Laser eye surgery) - Family & Social History Family History: Mother: , Father: Family History Comment/Other: She has 2 adult children that are healthy and 1 adult daughter that has mental cognitive delay and needs full care. Living arrangement: At home Living Situation: With spouse/s.o., With family Social History Notes: She is blind but walks around the house, occs by furni ture and wall surfing, but mostly knows her house layout and is indep, however she does not leave the house. She can normally make meals but has not, over the last 1 month, because of extreme weakness. She needs to be fed because of blindness but eats a regular diet. She does not smoke cigarettes and never smoked. She drinks no alcohol. Meds/Allgy - Home Medications Home Medications: Ambulatory Orders Medication Instructions Recorded Confirmed diltiaZEM [Cardizem] 30 mg PO Q8H #90 tablet 05/21/22 06/25/22 Sacubitril/Valsartan [Entresto 24 1 tab PO BID 06/25/22 06/26/22 mg-26 mg Tablet] - Allergies Allergies/Adverse Reactions: Allergies Allergy/AdvReac Type Severity Reaction Status Date / Time No Known Drug Allergies Allergy Verified 06/25/22 15:15 Review of Systems - Constitutional Constitutional: reports: Fatigue, Weakness - Eyes Eyes: reports: Other (Blind) - Ears, Nose & Throat Ears, Nose & Throat: reports: Hearing loss, Hearing aids - Cardiovascular Cariovascular: reports: Other (She feels no palpitations whatsoever. She has rare chest pain, vaguely described) - Neurological Neurological: reports: Other (Heraing loss) - All Other Systems All Other Systems: reports: Reviewed and negative Exam - Vital Signs Vital Signs: Vital Signs x48h Temp Pulse Resp BP Pulse Ox 06/26/22 09:00 96 22 109/76 93 06/26/22 08:30 96 23 107/89 H 95 06/26/22 08:00 118 H 22 117/83 H 94 06/26/22 07:30 104 H 22 113/82 H 94 06/26/22 07:12 97 21 111/75 95 06/26/22 06:51 36.3 C L 101 H 24 103/81 H 95 06/26/22 05:46 36.3 C L 99 23 101/81 H 95 06/26/22 04:30 103 H 22 107/83 H 96 06/26/22 03:50 113 H 27 H 113/86 H 94 06/26/22 03:43 107 H 27 H 113/86 H 95 06/26/22 02:30 37.0 C 108 H 25 H 102/83 H 94 06/26/22 01:45 89 23 102/83 H 96 - Physical Exam General Appearance: positive: No acute distress, Alert Eyes Bilateral: positive: Normal inspection, EOMI ENT: positive: ENT inspection nml, No signs of dehydration Neck: positive: Nml inspection, No JVD Respiratory: positive: No respiratory distress, Other (Diminished breath sounds at both bases, no rales or wheezing) Cardiovascular: positive: Tachycardia (Distant heart sounds) Abdomen: positive: Non-tender Skin: positive: Warm, Dry Extremities: positive: Non-tender, Other (4+ edema to the mid thighs, legs are unshaven, several ecchymoses seen of the toe) Neurologic/Psychiatric: positive: Oriented x3, Other (Blindness, deafness, has a left hearing aid in place) Conclusion/Plan - Problem List (1) Atrial fibrillation with RVR Conclusion/Plan: Her TSH is WNL ruling out hyperthyroidism. Her troponins have not doubled ruling out ACS. Her LV function is not known. Will continue with IV Cardizem drip to achieve rate control. Will place the patient on therapeutic Lovenox for her anticoagulation, and stop the IV heparin drip. campus monitor and remain in the ICU. Obtain a complete Echo exam. As a board-certified [employer], credentialed to interpret echoes I performed a complete Echo exam. The Echo showed: Four-chamber dilatation. Concentric LVH with severely depressed global LV function, EF 15 to 20%. Right ventricular function moderately depressed. Heavily calcified mitral annulus, mitral leaflets and aortic leaflets. Tricuspid and pulmonic valves appear structurally normal. Doppler of the valves shows moderate-severe mitral regurgitation and tricuspid regurgitation. There is decreased aortic valve mobility, due to low cardiac output and not from aortic stenosis. Pulmonary artery pressure could not be accurately assessed from the TR jet. No pericardial effusion seen. (2) CHF exacerbation Conclusion/Plan: We have no records here with echo results or other cardiac work-up but given the home Entresto prescription, she must have an LVEF that is under 30%. I performed an Echo on her myself (see #1) and she has four-chamber dilatation with severely depressed LV and RV function. Very strongly suspect this could be from poor heart rate control, that has been happening since December of this year. I reported the results of today's Echo to the patient and the at bedside. She and the say she was never on carvedilol, metoprolol, Lisinopril, and she only had Lasix "for 1 day, many months back and was concerned about a low potassium". We will start IV Lasix daily, once blood pressure is known to be stable and over 100. Follow I's and O's, daily weights Follow BMP, magnesium, BNP daily Low-salt diet will be ordered. Will start beta-blockers, which will help with the heart rate control too Once her rate is controlled on Cardizem and beta-blockers, and she is diuresing and if BP stable, will then eventually add INEZ or ARB. The Entresto will be put on hold because of the current CHF exacerbation and because of the "soft" blood pressures currently. I discussed the prognosis with the patient and at bedside. If there is rate control and she is compliant with her other medicines, she could have recovery of LV function, but it would be many months. Qualifiers: Heart failure type: systolic Qualified Code(s): I50.23 - Acute on chronic systolic (congestive) heart failure (3) Anasarca Conclusion/Plan: We will start IV Lasix once blood pressure is known to be stable and overall 100. Follow I's and O's. Low-salt diet will be ordered Obtain a complete Echo (4) Pleural effusion Conclusion/Plan: As in #2 (5) Elevated troponin Conclusion/Plan: These are elevated but "flat", ruling out ACS but are consistent with her heart failure and elevated BNP. Treat CHF as described in #2 (6) Hyponatremia Conclusion/Plan: This is hypervolemic hyponatremia related to volume overload. Will treat with IV diuretics. Follow I's and O's and daily weights. 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 She can only see bright lights, no colors, no figures. Will order for her to be fed (8) Deafness Conclusion/Plan: She describes this also started when she was young and progressively got worse and is from a syndrome. She wears bilateral hearing aids, currently only the left hearing aid is in - Lab Results Fish Bones: 06/26/22 12:13 06/26/22 12:13 - Diagnostic Imaging Results Diagnostic Imaging Results: positive: Final report reviewed - Other Other Results/Comments: Attestation: The patient is expected to be discharged or transferred to another facility within 96 hours: Yes.
[2022-06-26] MEDS: FAMOTIDINE 20 MG TABLET PO SCH ×2 (11:27→21:07)
[2022-06-26] MEDS: diltiaZEM INJ 125 MG in DEXTROSE 5% 100 ML IV SCH (11:27)
[2022-06-26] MEDS: ENOXAPARIN 80 MG/0.8 ML SYRINGE SUBQ SCH ×2 (11:56→21:07)
[2022-06-26] MEDS: SODIUM CHLORIDE FLUSH 0.9% 10 ML SYRINGE IVP SCH (11:58)
[2022-06-26 12:20] LABS: HCT - HEMATOCRIT 44.8 % (37.0-47.0); MEAN CORPUSCULAR HEMOGLOBIN 30.1 pg (27.0-31.0); MEAN CORPUSCULAR HGB CONC 33.5 g/dL (32.0-36.0); MEAN PLATELET VOLUME 11.6 fL (7.9-10.8); RED BLOOD COUNT 4.98 10^6/uL (4.20-5.40); RED CELL DISTRIBUTION WIDTH 15.2 % (12.0-15.0); WHITE BLOOD COUNT 8.6 x10^3/uL (4.8-10.8)
[2022-06-26 12:41] LABS: CALCIUM 9.3 mg/dL (8.5-10.3); CREATININE 1.1 mg/dL (0.4-1.0)
[2022-06-26] MEDS: carvediloL 3.125 MG TABLET PO SCH (21:07)
[2022-06-27] MEDS: diltiaZEM INJ 125 MG in DEXTROSE 5% 100 ML IV SCH (01:18)
[2022-06-27 05:27] LABS: BASOPHILS # (AUTO) 0.1 10^3/uL (0.0-0.1); BASOPHILS % (AUTO) 1.5 %; EOSINOPHILS # (AUTO) 0.2 10^3/uL (0.0-0.7); EOSINOPHILS % (AUTO) 2.7 %; HCT - HEMATOCRIT 43.4 % (37.0-47.0); HGB - HEMOGLOBIN 14.3 g/dL (12.0-16.0); LYMPHOCYTES # (AUTO) 0.8 10^3/uL (1.5-3.5); LYMPHOCYTES % (AUTO) 12.9 %; MEAN CORPUSCULAR HEMOGLOBIN 29.8 pg (27.0-31.0); MEAN CORPUSCULAR HGB CONC 32.9 g/dL (32.0-36.0); MEAN CORPUSCULAR VOLUME 90.4 fL (81.0-99.0); MEAN PLATELET VOLUME 11.4 fL (7.9-10.8); MONOCYTES # (AUTO) 0.7 10^3/uL (0.0-1.0); MONOCYTES % (AUTO) 11.2 %; NEUTROPHILS # (AUTO) 4.2 10^3/uL (1.5-6.6); NEUTROPHILS % (AUTO) 71.5 %; PLT - PLATELET COUNT 230 10^3/uL (130-450); RED CELL DISTRIBUTION WIDTH 15.2 % (12.0-15.0); WHITE BLOOD COUNT 5.9 x10^3/uL (4.8-10.8)
[2022-06-27 05:29] LABS: CALCIUM, IONIZED 1.1 mmol/L (1.15-1.33); VBG PH 7.476 (7.31-7.41)
[2022-06-27 05:39] LABS: CALCIUM 8.8 mg/dL (8.5-10.3); MAGNESIUM 1.9 mg/dL (1.7-2.8); PHOSPHORUS 3.2 mg/dL (2.5-4.6); POTASSIUM 3.3 mmol/L (3.5-5.0)
[2022-06-27] MEDS: SODIUM CHLORIDE FLUSH 0.9% 10 ML SYRINGE IVP SCH ×3 (07:20→18:14)
[2022-06-27] MEDS: CALCIUM CARBONATE CHEW 500 MG TABLET PO SCH ×2 (08:30→12:15)
[2022-06-27] MEDS: carvediloL 3.125 MG TABLET PO SCH ×2 (08:52→20:46)
[2022-06-27] MEDS: FAMOTIDINE 20 MG TABLET PO SCH ×2 (08:52→20:46)
[2022-06-27] MEDS: ENOXAPARIN 80 MG/0.8 ML SYRINGE SUBQ SCH ×2 (08:54→20:45)
[2022-06-27] MEDS: POTASSIUM CHLORIDE 20 MEQ TABLET PO SCH ×2 (08:54→11:29)
[2022-06-27] MEDS: FUROSEMIDE 40 MG/4 ML VIAL IVP SCH (09:17)
[2022-06-27] MEDS ORDERED: carvediloL 3.125 MG TABLET PO ONE (10:00)
[2022-06-27] MEDS ORDERED: diltiaZEM CD 120 MG CAPSULE PO SCH (12:00)
--- NOTE | 2022-06-27 12:37 | PROVIDER PROGRESS NOTE ---
Subjective - Subjective Pt reports feeling: Improved (She is noticing less "palpitations" and slightly improved shortness of breath although she did not have much orthopnea by her report.) Objective - Vital Signs/Intake & Output Reviewed Vital Signs: Yes Vital Signs: Vital Signs Pulse Resp BP Pulse Ox 06/27/22 12:00 101 H 22 99/74 97 06/27/22 11:00 85 22 106/83 H 94 06/27/22 10:00 98 23 97/73 97 06/27/22 09:00 101 H 29 H 103/84 H 95 Intake & Output: Intake & Output 06/24/22 06/25/22 06/26/22 06/27/22 23:59 23:59 23:59 23:59 Intake Total 1077.167 886.916 Output Total 9097 115 1263 Balance -1000 427.167 -413.084 - Objective General Appearance: positive: No acute distress, Alert Eyes Bilateral: positive: EOMI, Other (Blind) ENT: positive: No signs of dehydration Neck: positive: Nml inspection, No JVD Respiratory: positive: No respiratory distress, Other (Diminished breath sounds at both bases.) Cardiovascular: positive: Other (Distant heart sounds) Abdomen: positive: Non-tender, Nml bowel sounds, No distention Skin: positive: Warm, Dry Extremities: positive: Non-tender, Other (Several ecchymoses noted. Has 3+ edema to mid-thighs.) Neurologic/Psychiatric: positive: Oriented x3 ([place] and is blind.) - Lab Results Fish Bones: 06/27/22 05:12 06/27/22 05:12 Other Labs: Lab Results x24hrs 06/27/22 06/27/22 06/27/22 Range/Units 05:12 05:12 05:12 WBC (4.8-10.8) x10^3/uL RBC (4.20-5.40) 10^6/uL Hgb (12.0-16.0) g/dL Hct (37.0-47.0) % MCV (81.0-99.0) fL MCH (27.0-31.0) pg MCHC (32.0-36.0) g/dL RDW (12.0-15.0) % Plt Count (130-450) 10^3/uL MPV (7.9-10.8) fL Neut # (Auto) (1.5-6.6) 10^3/uL Lymph # (Auto) (1.5-3.5) 10^3/uL [place] # (Auto) (0.0-1.0) 10^3/uL Eos # (Auto) (0.0-0.7) 10^3/uL Baso # (Auto) (0.0-0.1) 10^3/uL Absolute Nucleated RBC x10^3/uL Nucleated RBC % /100WBC VBG pH 7.476 H (7.31-7.41) Ionized Calcium 1.10 L (1.15-1.33) mmol/L Sodium 133 L (135-145) mmol/L Potassium 3.3 L (3.5-5.0) mmol/L Chloride 101 (101-111) mmol/L Carbon Dioxide 23 (21-32) mmol/L Anion Gap 9.0 (6-13) BUN 14 (6-20) mg/dL Creatinine 1.0 (0.4-1.0) mg/dL Estimated GFR (MDRD) 54 L (>89) Glucose 108 H (70-100) mg/dL Calcium 8.8 (8.5-10.3) mg/dL Phosphorus 3.2 (2.5-4.6) mg/dL Magnesium 1.9 (1.7-2.8) mg/dL Troponin I High Sens (2.3-14.8) ng/L B-Natriuretic Peptide 1771 H (5-100) pg/mL Nasal Screen MRSA (PCR) (NEGATIVE) 06/27/22 06/26/22 06/26/22 Range/Units 05:12 12:13 12:13 WBC 5.9 (4.8-10.8) x10^3/uL RBC 4.80 (4.20-5.40) 10^6/uL Hgb 14.3 (12.0-16.0) g/dL Hct 43.4 (37.0-47.0) % MCV 90.4 (81.0-99.0) fL MCH 29.8 (27.0-31.0) pg MCHC 32.9 (32.0-36.0) g/dL RDW 15.2 H (12.0-15.0) % Plt Count 230 (130-450) 10^3/uL MPV 11.4 H (7.9-10.8) fL Neut # (Auto) 4.2 (1.5-6.6) 10^3/uL Lymph # (Auto) 0.8 L (1.5-3.5) 10^3/uL [place] # (Auto) 0.7 (0.0-1.0) 10^3/uL Eos # (Auto) 0.2 (0.0-0.7) 10^3/uL Baso # (Auto) 0.1 (0.0-0.1) 10^3/uL Absolute Nucleated RBC 0.00 x10^3/uL Nucleated RBC % 0.0 /100WBC VBG pH (7.31-7.41) Ionized Calcium (1.15-1.33) mmol/L Sodium 137 (135-145) mmol/L Potassium 4.0 (3.5-5.0) mmol/L Chloride 100 L (101-111) mmol/L Carbon Dioxide 25 (21-32) mmol/L Anion Gap 12.0 (6-13) BUN 17 (6-20) mg/dL Creatinine 1.1 H (0.4-1.0) mg/dL Estimated GFR (MDRD) 48 L (>89) Glucose 110 H (70-100) mg/dL Calcium 9.3 (8.5-10.3) mg/dL Phosphorus (2.5-4.6) mg/dL Magnesium (1.7-2.8) mg/dL Troponin I High Sens (2.3-14.8) ng/L B-Natriuretic Peptide 3260 H (5-100) pg/mL Nasal Screen MRSA (PCR) (NEGATIVE) 06/26/22 06/26/22 Range/Units 12:13 11:31 WBC (4.8-10.8) x10^3/uL RBC (4.20-5.40) 10^6/uL Hgb (12.0-16.0) g/dL Hct (37.0-47.0) % MCV (81.0-99.0) fL MCH (27.0-31.0) pg MCHC (32.0-36.0) g/dL RDW (12.0-15.0) % Plt Count (130-450) 10^3/uL MPV (7.9-10.8) fL Neut # (Auto) (1.5-6.6) 10^3/uL Lymph # (Auto) (1.5-3.5) 10^3/uL [place] # (Auto) (0.0-1.0) 10^3/uL Eos # (Auto) (0.0-0.7) 10^3/uL Baso # (Auto) (0.0-0.1) 10^3/uL Absolute Nucleated RBC x10^3/uL Nucleated RBC % /100WBC VBG pH (7.31-7.41) Ionized Calcium (1.15-1.33) mmol/L Sodium (135-145) mmol/L Potassium (3.5-5.0) mmol/L Chloride (101-111) mmol/L Carbon Dioxide (21-32) mmol/L Anion Gap (6-13) BUN (6-20) mg/dL Creatinine (0.4-1.0) mg/dL Estimated GFR (MDRD) (>89) Glucose (70-100) mg/dL Calcium (8.5-10.3) mg/dL Phosphorus (2.5-4.6) mg/dL Magnesium (1.7-2.8) mg/dL Troponin I High Sens 93.0 H* (2.3-14.8) ng/L B-Natriuretic Peptide (5-100) pg/mL Nasal Screen MRSA (PCR) NEGATIVE (NEGATIVE) Assessment/Plan - Problem List (1) Atrial fibrillation with RVR Impression: Her TSH is WNL ruling out hyperthyroidism. Her troponins have not doubled ruling out ACS. Her LV function was not known at admission. She said she has never had work-up for CAD (never had a stress test or coronary angio). Will continue with Cardizem to achieve rate control. Today we will transition her IV Cardizem drip to oral Cardizem. We placed the patient on therapeutic Lovenox for her anticoagulation, for stroke prophylaxis, and we stopped the IV heparin drip that ER started. Will have to determine which oral anticoagulant she would agree to take (see #6 below). Continue cardiac monitor technician and remain in the ICU. We ordered a complete Echo exam. (2) Acute on chronic systolic heart failure We have no records here with Echo results or other cardiac work-up but given the home Entresto prescription, this suggested she must have an LVEF that is under 30%. As a board-certified [employer], credentialed here to interpret Echoes, I performed a complete Echo exam on 06/26. The Echo showed: Four-chamber dilatation. Concentric LVH with severely depressed global LV function, EF 15 - 20%. Right ventricular function moderately depressed. Heavily calcified mitral annulus, mitral leaflets and aortic leaflets. Tricuspid and pulmonic valves appear structurally normal. Doppler of the valves shows moderate-severe mitral regurgitation and tricuspid regurgitation. There is decreased aortic valve mobility, due to low cardiac output and not from aortic stenosis. Pulmonary artery pressure could not be accurately assessed from the TR jet. No pericardial effusion seen. Very strongly suspect her cardiomyopaty could be from inadequate heart rate control, which may have been happening since December of this year. When I discussed the results of the Echo to the patient and the at bedside, they said she was never on carvedilol, metoprolol, Lisinopril, and she only had Lasix "for 1 day, many months back and was concerned about a low potassium. Dr Hough did advise she restart it recently, but she never did". We have started IV Lasix daily, following I's and O's, daily weights. She weighs about 8 pounds more than she did several months ago which is probably all water weight gain, since she was not eating much for the past few weeks. Follow daily BMP, magnesium, and occais BNP Low-salt diet ordered. We started Carvedilol, which will help with the heart rate control too Once her rate is controlled on Cardizem plus beta-blockers, and she is diuresing on Lasix, and if BP stable, will then eventually add INEZ or ARB and Spironolactone. The Entresto has been put on hold because of the current CHF exacerbation and because of the "soft" blood pressures currently. I discussed the prognosis on 06/26 with the patient and at bedside. If there is rate control and she is compliant with her medicines, she could have recovery of LV function, but it would be many months. Also, she needs W/U for CAD, if never done. Qualifiers: Heart failure type: systolic Qualified Code(s): I50.23 - Acute on chronic systolic (congestive) heart failure (3) Anasarca Conclusion/Plan: We have started IV Lasix. I told the patient she has about 8 pounds of water weight that needs to diurese off. Follow I's and O's. Low-salt diet will be ordered (4) Pleural effusion Conclusion/Plan: As in #2 (5) Hyponatremia Conclusion/Plan: This is hypervolemic hyponatremia related to volume overload. Will treat with IV diuretics. Follow I's and O's and daily weights. (6) Non-compliance with medications Conclusion/Plan: This patient gave me several examples of her being noncompliant with medical management: She said Cardizem CD gave her a "bad reaction" but regular Cardizem works perfectly. She said Eliquis made her foggy and confused so it was stopped and she was ordered to get Xarelto but she was too afraid to start it. She was recently told to resume Lasix but she never did, afraid that she would have a low potassium. I instructed her that is important to take prescribed medications but to discuss side effects with her provider, so that an alternative can be ordered, but not to simply eliminate meds by herself. I suspect this is the reason for having longstanding tachycardia (poorly controlled A. fib with RVR), which may have caused the systolic heart failure. 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 She can only see bright lights, no colors, no figures. She needs to be fed. 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 She wears bilateral hearing aids, currently only the left hearing aid is in.
[2022-06-27] MEDS: SODIUM CHLORIDE FLUSH 0.9% 10 ML SYRINGE IVP PRN (20:53)
[2022-06-28] MEDS: SODIUM CHLORIDE FLUSH 0.9% 10 ML SYRINGE IVP SCH ×3 (00:32→18:14)
[2022-06-28 05:52] LABS: HCT - HEMATOCRIT 45.4 % (37.0-47.0); HGB - HEMOGLOBIN 15.2 g/dL (12.0-16.0); MEAN CORPUSCULAR HGB CONC 33.5 g/dL (32.0-36.0); MEAN CORPUSCULAR VOLUME 89.7 fL (81.0-99.0); MEAN PLATELET VOLUME 11.2 fL (7.9-10.8); RED BLOOD COUNT 5.06 10^6/uL (4.20-5.40); RED CELL DISTRIBUTION WIDTH 15.1 % (12.0-15.0); WHITE BLOOD COUNT 5.7 x10^3/uL (4.8-10.8)
[2022-06-28 05:53] LABS: CALCIUM, IONIZED 1.09 mmol/L (1.15-1.33); VBG PH 7.421 (7.31-7.41)
[2022-06-28 06:05] LABS: CALCIUM 8.8 mg/dL (8.5-10.3); MAGNESIUM 1.7 mg/dL (1.7-2.8); PHOSPHORUS 3.2 mg/dL (2.5-4.6); POTASSIUM 3.7 mmol/L (3.5-5.0)
[2022-06-28] MEDS ORDERED: MAGNESIUM OXIDE 400 MG TABLET PO ONE (07:00)
[2022-06-28] MEDS: CALCIUM CARBONATE CHEW 500 MG TABLET PO SCH ×2 (07:28→11:16)
[2022-06-28] MEDS ORDERED: POTASSIUM CHLORIDE 20 MEQ TABLET PO ONE (08:00)
[2022-06-28] MEDS: FUROSEMIDE 40 MG/4 ML VIAL IVP SCH (08:06)
[2022-06-28] MEDS: FAMOTIDINE 20 MG TABLET PO SCH ×2 (08:07→21:11)
[2022-06-28] MEDS: carvediloL 3.125 MG TABLET PO SCH ×2 (08:08→21:03)
[2022-06-28] MEDS: POTASSIUM CHLORIDE 20 MEQ TABLET PO SCH (08:08)
[2022-06-28] MEDS: ENOXAPARIN 80 MG/0.8 ML SYRINGE SUBQ SCH (09:55)
[2022-06-28] MEDS: polyethylene glycoL 3350 17 GM PACKET PO SCH (09:56)
--- NOTE | 2022-06-28 17:59 | PROVIDER PROGRESS NOTE ---
Subjective - Prog Note Date Prog Note Date: 06/28/22 Prog Note Time: 17:55 - Subjective Pt reports feeling: Improved Subjective: and daughter were in the room with her. She asked me to be circumspect about speaking about prognosis in front of their daughter who is developmentally delayed. She asked me to speak in generalities and cannot be specific.She is blind. Hard of hearing. At home she describes furniture surfing to hold onto things to get around the house. I was also able to speak to Dr. Bangura. He tells me that the initial presentation was probably over 8 months ago and she was seen at either [facility] or [facility]. He is not sure which hospital. She was given medications at that time but really did not take them. She also really did not follow-up. He finally met her 2 months ago and she was already heart failure class III. She was intolerant of Entresto, metoprolol. Really reluctant to take a lot of medications because it made her feel so "horrible". A Zio patch for 3 days showed her to have a heartbeat of 140 last week. He was finally able to do video call last Monday and she was so short of breath on the video call that he encourage her to please go to the emergency room. She has not followed up with taking Eliquis or Xarelto. He says he has no preference but try and encourage her to take 1 or the other. I discussed our management of her here and he feels that Coreg is probably not going to help much at this time. Focus on the Cardizem. Metoprolol made her feel horrible so he doubts that she will be compliant with taking it. He asked us to "dry her out and get good rate control" as much as possible. He is worried about her follow-up. He is only getting be on [facility] once a month for the next few months. And she has shown incredible reluctance to going to the [facility] to see him at the [facility]. Current Medications - Current Medications Current Medications: Active Medications Acetaminophen (Acetaminophen 325 Mg Tablet) 650 mg PO Q4HR PRN PRN Reason: Pain 1 to 4, or Fever Carvedilol (Carvedilol 3.125 Mg Tablet) 6.25 mg PO BID [facility] Last Admin: 06/28/22 08:08 Dose: 6.25 mg Diltiazem HCl (Diltiazem 60 Mg Tablet) 60 mg PO TIDWM [facility] Last Admin: 06/28/22 17:22 Dose: Not Given Enoxaparin Sodium (Enoxaparin 80 Mg/0.8 Ml Syringe) 80 mg SUBQ BID [facility] Last Admin: 06/28/22 09:55 Dose: 80 mg Famotidine (Famotidine 20 Mg Tablet) 20 mg PO BID [facility] Last Admin: 06/28/22 08:07 Dose: 20 mg Furosemide (Furosemide 40 Mg/4 Ml Vial) 40 mg IVP DAILY [facility] Last Admin: 06/28/22 08:06 Dose: 40 mg Polyethylene Glycol (Polyethylene Glycol 3350 17 Gm Packet) 17 gm PO DAILY [facility] Last Admin: 06/28/22 09:56 Dose: Not Given Potassium Chloride (Potassium Chloride 20 Meq Tablet) 20 meq PO DAILYWM [facility] Last Admin: 06/28/22 08:08 Dose: 20 meq Sodium Chloride (Sodium Chloride Flush 0.9% 10 Ml Syringe) 10 ml IVP 0100,0900,1700 [facility] Last Admin: 06/28/22 09:55 Dose: 10 ml Sodium Chloride (Sodium Chloride Flush 0.9% 10 Ml Syringe) 10 ml IVP PRN PRN PRN Reason: NEEDED PER PROVIDER ORDERS Last Admin: 06/27/22 20:53 Dose: 10 ml Sacubitril/Valsartan [Entresto 24 mg-26 mg Tablet] 1 tab PO BID 06/25/22 Objective - Vital Signs/Intake & Output Reviewed Vital Signs: Yes Vital Signs: Vital Signs x48h Temp Pulse Resp BP BP Pulse Ox 06/28/22 17:22 94/62 06/28/22 17:00 92 21 94/62 06/28/22 16:19 96 94/62 06/28/22 16:00 102 H 25 H 80/66 L 06/28/22 15:00 95 23 104/72 06/28/22 14:00 88 24 91/77 06/28/22 13:00 88 21 88/74 L 06/28/22 12:00 36.4 C L 84 13 94/64 94 06/28/22 11:00 114 H 17 109/87 H 06/28/22 10:00 103 H 26 H 91/72 Intake & Output: Intake & Output 06/25/22 06/26/22 06/27/22 06/28/22 23:59 23:59 23:59 23:59 Intake Total 7528.620 5856.916 560 Output Total 1613 737 1707 500 Balance -1000 427.167 -443.084 60 - Objective General Appearance: positive: Alert, Other (seen twice today, once alone and one w /daughter) Eyes Bilateral: positive: PERRL, EOMI ENT: positive: No signs of dehydration Neck: positive: No JVD. negative: Stiff neck Respiratory: positive: No respiratory distress, Wheezes (once and not repeated), Other (diminished at bases). negative: Rales, Rhonchi Cardiovascular: positive: Irregularly irregular, Tachycardia (occasionally, will be in 80s then shoot up to 130 then down again) Abdomen: positive: Non-tender, No organomegaly, Nml bowel sounds, No distention, Other (has a pure wick) Skin: positive: Warm, Dry Extremities: positive: Pedal edema Neurologic/Psychiatric: positive: Oriented x3 (but forgetful, needs support of to remember details), CN's nml (2-12), Motor nml - Lab Results Fish Bones: 06/28/22 05:45 06/28/22 05:45 Other Labs: Lab Results x24hrs 06/28/22 06/28/22 06/28/22 Range/Units 05:45 05:45 05:45 WBC 5.7 (4.8-10.8) x10^3/uL RBC 5.06 (4.20-5.40) 10^6/uL Hgb 15.2 (12.0-16.0) g/dL Hct 45.4 (37.0-47.0) % MCV 89.7 (81.0-99.0) fL MCH 30.0 (27.0-31.0) pg MCHC 33.5 (32.0-36.0) g/dL RDW 15.1 H (12.0-15.0) % Plt Count 223 (130-450) 10^3/uL MPV 11.2 H (7.9-10.8) fL VBG pH 7.421 H (7.31-7.41) Ionized Calcium 1.09 L (1.15-1.33) mmol/L Sodium (135-145) mmol/L Potassium (3.5-5.0) mmol/L Chloride (101-111) mmol/L Carbon Dioxide (21-32) mmol/L Anion Gap (6-13) BUN (6-20) mg/dL Creatinine (0.4-1.0) mg/dL Estimated GFR (MDRD) (>89) Glucose (70-100) mg/dL Calcium (8.5-10.3) mg/dL Phosphorus (2.5-4.6) mg/dL Magnesium (1.7-2.8) mg/dL B-Natriuretic Peptide 1544 H (5-100) pg/mL 06/28/22 Range/Units 05:45 WBC (4.8-10.8) x10^3/uL RBC (4.20-5.40) 10^6/uL Hgb (12.0-16.0) g/dL Hct (37.0-47.0) % MCV (81.0-99.0) fL MCH (27.0-31.0) pg MCHC (32.0-36.0) g/dL RDW (12.0-15.0) % Plt Count (130-450) 10^3/uL MPV (7.9-10.8) fL VBG pH (7.31-7.41) Ionized Calcium (1.15-1.33) mmol/L Sodium 131 L (135-145) mmol/L Potassium 3.7 (3.5-5.0) mmol/L Chloride 97 L (101-111) mmol/L Carbon Dioxide 25 (21-32) mmol/L Anion Gap 9.0 (6-13) BUN 15 (6-20) mg/dL Creatinine 1.0 (0.4-1.0) mg/dL Estimated GFR (MDRD) 54 L (>89) Glucose 90 (70-100) mg/dL Calcium 8.8 (8.5-10.3) mg/dL Phosphorus 3.2 (2.5-4.6) mg/dL Magnesium 1.7 (1.7-2.8) mg/dL B-Natriuretic Peptide (5-100) pg/mL Assessment/Plan - Problem List (1) Atrial fibrillation with RVR Impression: Differential diagnosis of hyperthyroidism, PR have been ruled out. Case discussed with Dr. Bangura, cardiology, and history as above. On oral Cardizem since June 27. On Lovenox for anticoagulation and she is asking if she can be transition to pills. I told her yes but it would have to be Xarelto or Eliquis. Will aim for that heart rate control. She seems to have improved over the last couple of days by reading the progress notes and seeing the heart rate noted. Still not at goal. Unfortunately we are holding her Cardizem at times due to 2 parameters. We will hold Coreg, add digoxin. (2) Acute on chronic systolic heart failure On the previous week of hospitalist service, that hospitalist, as a board-certified Supervisor [employer] is credentialed here to interpret Echoes; she performed a complete Echo exam on 06/26. The Echo showed: Four-chamber dilatation. Concentric LVH with severely depressed global LV function, EF 15 - 20%. Right ventricular function moderately depressed. Heavily calcified mitral annulus, mitral leaflets and aortic leaflets. Tricuspid and pulmonic valves appear structurally normal. Doppler of the valves shows moderate-severe mitral regurgitation and tricuspid regurgitation. There is decreased aortic valve mobility, due to low cardiac output and not from aortic stenosis. Pulmonary artery pressure could not be accurately assessed from the TR jet. No pericardial effusion seen. We were able to get a formal echocardiogram today and preliminary report shows moderate to severe left ventricular enlargement. Ejection fraction is severely impaired at less than 20%. The calculated left ventricular ejection fraction is 17%. Severe global hypokinesis of LV contractility. Severe right ventricular enlargement. Right ventricular systolic function is 24%. Severe left and right atrial enlargement. Aortic valve mildly calcified. Mitral valve thickened with moderate mitral calcification and mild to moderate mitral regurgitation. She has mild to moderate tricuspid regurgitation. The echo will be looked at by Dr. Bangura. Right now we think that her cardiomyopathy is due to inadequate heart rate control is probably been present for 8 months or more. Plan: Daily intake and output to watch fluid balance Daily weights Low-salt diet On carvedilol but that may be discontinued Add digoxin Continue diuresis until dry weight is obtained Continue Cardizem to rate control Blood pressure is not can to be able to tolerate spironolactone or INEZ/ARB right now but that will be considered Risk of sudden discussed and patients were less than 30%. Possibility of an AICD discussed as well. But that would be left up to cardiology Qualifiers: Heart failure type: systolic Qualified Code(s): I50.23 - Acute on chronic systolic (congestive) heart failure (3) Anasarca Conclusion/Plan: We have started IV Lasix. I told the patient she has about 8 pounds of water weight that needs to diurese off. Follow I's and O's. Low-salt diet will be ordered (4) Pleural effusion Conclusion/Plan: As in #2 (5) Hyponatremia Conclusion/Plan: This is hypervolemic hyponatremia related to volume overload. Will treat with IV diuretics. Follow I's and O's and daily weights. (6) Non-compliance with medications Conclusion/Plan: Patient gave previous hospitalist several examples of her being noncompliant with medical management: She said Cardizem CD gave her a "bad reaction" but regular Cardizem works perfectly. She said Eliquis made her foggy and confused so it was stopped and she was ordered to get Xarelto but she was too afraid to start it. She was recently told to resume Lasix but she never did, afraid that she would have a low potassium. She was instructed that it is important to take prescribed medications but to discuss side effects with her provider, so that an alternative can be ordered, but not to simply eliminate meds by herself. Both Dr. Bangura and the previous hospitalist stated that they think noncompliance is the reason for having longstanding tachycardia (poorly controlled A. fib with RVR), which may have caused the systolic heart failure. 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 She can only see bright lights, no colors, no figures. She needs to be fed. 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 She wears bilateral hearing aids, currently only the left hearing aid is in.
[2022-06-28] MEDS: APIXABAN 5 MG TABLET PO SCH (21:11)
[2022-06-28] MEDS: DIGOXIN 500 MCG/2 ML AMP IVP SCH (21:11)
[2022-06-28] MEDS: SODIUM CHLORIDE FLUSH 0.9% 10 ML SYRINGE IVP PRN (21:12)
[2022-06-29] MEDS: SODIUM CHLORIDE FLUSH 0.9% 10 ML SYRINGE IVP SCH ×3 (00:34→17:02)
[2022-06-29 05:30] LABS: CALCIUM 8.8 mg/dL (8.5-10.3); CREATININE 1.1 mg/dL (0.4-1.0); MAGNESIUM 1.8 mg/dL (1.7-2.8); PHOSPHORUS 3.2 mg/dL (2.5-4.6); POTASSIUM 3.9 mmol/L (3.5-5.0)
[2022-06-29] MEDS ORDERED: MAGNESIUM OXIDE 400 MG TABLET PO ONE (07:00)
[2022-06-29] MEDS ORDERED: POTASSIUM CHLORIDE 20 MEQ TABLET PO ONE (08:00)
[2022-06-29] MEDS: POTASSIUM CHLORIDE 20 MEQ TABLET PO SCH (08:25)
[2022-06-29] MEDS: APIXABAN 5 MG TABLET PO SCH ×2 (08:26→21:29)
[2022-06-29] MEDS: carvediloL 3.125 MG TABLET PO SCH ×2 (08:26→21:29)
[2022-06-29] MEDS: DIGOXIN 500 MCG/2 ML AMP IVP SCH ×2 (08:27→14:57)
[2022-06-29] MEDS: FAMOTIDINE 20 MG TABLET PO SCH ×2 (08:27→21:29)
[2022-06-29] MEDS: polyethylene glycoL 3350 17 GM PACKET PO SCH (08:28)
[2022-06-29] MEDS: FUROSEMIDE 40 MG/4 ML VIAL IVP SCH (08:28)
[2022-06-29] MEDS ORDERED: SODIUM CHLORIDE 0.9% 500 ML IV ONE (14:20)
--- NOTE | 2022-06-29 17:32 | PROVIDER PROGRESS NOTE ---
Subjective - Prog Note Date Prog Note Date: 06/29/22 Prog Note Time: 17:30 - Subjective Subjective: I was finally able to get her heart rate successfully controlled with the addition of digoxin. But I have overshot the german[place] and she is now in the 40s and 50s at times. Blood pressure drop with this. She feels dizzy, slightly nauseated. Said given her 500 cc of normal saline bolus and stopped her digoxin. I was able to speak to her about her wishes. She is telling the nurses that she does not know if moving forward with all of this is worth it to her. She feels like if her life is going to be shortened, she would rather go home and go sooner rather than later if this is a major issue is going to have. While she shared that with us she has not shared that with her and I have encouraged him to speak to her when her daughter is not in the room. They do have plans for their disabled daughter. If anything happens to them, she is going to be living with her 2 brothers in [place]. Current Medications - Current Medications Current Medications: Active Medications Acetaminophen (Acetaminophen 325 Mg Tablet) 650 mg PO Q4HR PRN PRN Reason: Pain 1 to 4, or Fever Apixaban (Apixaban 5 Mg Tablet) 5 mg PO BID [facility] Last Admin: 06/29/22 08:26 Dose: 5 mg Calamine (Calamine/Zinc Oxide 177 Ml Bottle) 1 applic TOP PRN PRN PRN Reason: SKIN CARE Carvedilol (Carvedilol 3.125 Mg Tablet) 6.25 mg PO BID [facility] Last Admin: 06/29/22 08:26 Dose: 6.25 mg Diltiazem HCl (Diltiazem 60 Mg Tablet) 60 mg PO TIDWM [facility] Last Admin: 06/29/22 16:59 Dose: Not Given Famotidine (Famotidine 20 Mg Tablet) 20 mg PO BID [facility] Last Admin: 06/29/22 08:27 Dose: 20 mg Furosemide (Furosemide 40 Mg/4 Ml Vial) 40 mg IVP DAILY [facility] Last Admin: 06/29/22 08:28 Dose: 40 mg Polyethylene Glycol (Polyethylene Glycol 3350 17 Gm Packet) 17 gm PO DAILY [facility] Last Admin: 06/29/22 08:28 Dose: 17 gm Potassium Chloride (Potassium Chloride 20 Meq Tablet) 20 meq PO DAILYWM [facility] Last Admin: 06/29/22 08:25 Dose: 20 meq Sodium Chloride (Sodium Chloride Flush 0.9% 10 Ml Syringe) 10 ml IVP 0100,0900,1700 [facility] Last Admin: 06/29/22 17:02 Dose: 10 ml Sodium Chloride (Sodium Chloride Flush 0.9% 10 Ml Syringe) 10 ml IVP PRN PRN PRN Reason: NEEDED PER PROVIDER ORDERS Last Admin: 06/28/22 21:12 Dose: 10 ml Sacubitril/Valsartan [Entresto 24 mg-26 mg Tablet] 1 tab PO BID 06/25/22 Objective - Vital Signs/Intake & Output Reviewed Vital Signs: Yes Vital Signs: Vital Signs x48h Temp Pulse Resp BP BP Pulse Ox 06/29/22 17:00 66 18 90/74 96 06/29/22 16:59 90/74 06/29/22 16:00 64 21 88/71 L 95 06/29/22 15:00 62 20 75/56 L 95 06/29/22 14:30 59 L 19 87/65 L 96 06/29/22 14:00 55 L 17 73/55 L 95 06/29/22 13:00 60 14 69/60 L 96 06/29/22 12:00 36.7 C 78 25 H 84/67 L 97 06/29/22 11:00 76 20 94/64 96 06/29/22 10:00 126 H 18 101/37 L 97 Intake & Output: Intake & Output 06/26/22 06/27/22 06/28/22 06/29/22 23:59 23:59 23:59 23:59 Intake Total 9449.566 1674.227 906 2017 Output Total 650 2324 537 9709 Balance 427.167 -443.084 110 -540 - Objective General Appearance: positive: Other (Pale, slightly diaphoretic, lethargic. "I feel like the lights are going out") Eyes Bilateral: positive: Other (Blind) ENT: positive: No signs of dehydration, Other (Deaf and needs her hearing aid) Neck: positive: No JVD. negative: Stiff neck Respiratory: positive: Chest non-tender, No respiratory distress, Other (Diminished at bases) Cardiovascular: positive: Irregularly irregular. negative: JVD present Abdomen: positive: Non-tender, No organomegaly, Nml bowel sounds, No distention Skin: positive: Warm, Diaphoresis, Pallor Extremities: positive: Full ROM, Pedal edema Neurologic/Psychiatric: positive: Oriented x3, Motor nml (But needs to person assist to be able to put legs down, feet on floor, stand, and transfer to bed. She is exhausted and its a big effort). negative: CN's nml (2-12) (Blind and deaf) - Lab Results Fish Bones: 06/28/22 05:45 06/29/22 04:29 Other Labs: Lab Results x24hrs 06/29/22 Range/Units 04:29 Sodium 129 L (135-145) mmol/L Potassium 3.9 (3.5-5.0) mmol/L Chloride 94 L (101-111) mmol/L Carbon Dioxide 26 (21-32) mmol/L Anion Gap 9.0 (6-13) BUN 20 (6-20) mg/dL Creatinine 1.1 H (0.4-1.0) mg/dL Estimated GFR (MDRD) 48 L (>89) Glucose 93 (70-100) mg/dL Calcium 8.8 (8.5-10.3) mg/dL Phosphorus 3.2 (2.5-4.6) mg/dL Magnesium 1.8 (1.7-2.8) mg/dL Assessment/Plan - Problem List (1) Atrial fibrillation with RVR Impression: Differential diagnosis of hyperthyroidism, MA have been ruled out. Case discu ssed with Dr. Bangura, Her image assembler, extensively on June 28 On oral Cardizem since June 27. On Lovenox for anticoagulation and she is asking if she can be transition to pills. I told her yes but it would have to be Xarelto or Eliquis. I was able to start Eliquis at 5 mg twice daily. Pharmacy felt that we did not have to go to because she had been on heparin and Lovenox. She is still on Coreg, diltiazem 60 mg 3 times daily, and I have stopped her Lanoxin. Nursing is continuing to hold if her pulse drops below 60. Since his 11:00 this morning she has been at goal in the 50s and 60s and 70s. (2) Acute on chronic systolic heart failure On the previous week of hospitalist service, that hospitalist, as a board- certified Chief Clerk is credentialed here to interpret Echoes; she performed a complete Echo exam on 06/26. The Echo showed: Four-chamber dilatation. Concentric LVH with severely depressed global LV function, EF 15 - 20%. Right ventricular function moderately depressed. Heavily calcified mitral annulus, mitral leaflets and aortic leaflets. Tricuspid and pulmonic valves appear structurally normal. Doppler of the valves shows moderate-severe mitral regurgitation and tricuspid regurgitation. There is decreased aortic valve mobility, due to low cardiac output and not from aortic stenosis. Pulmonary artery pressure could not be accurately assessed from the TR jet. No pericardial effusion seen. We were able to get a formal echocardiogram 06/28 and preliminary report shows moderate to severe left ventricular enlargement. Ejection fraction is severely impaired at less than 20%. The calculated left ventricular ejection fraction is 17%. Severe global hypokinesis of LV contractility. Severe right ventricular enlargement. Right ventricular systolic function is 24%. Severe left and right atrial enlargement. Aortic valve mildly calcified. Mitral valve thickened with moderate mitral calcification and mild to moderate mitral regurgitation. She has mild to moderate tricuspid regurgitation. The echo will be looked at by Dr. Bangura. Right now we think that her cardiomyopathy is due to inadequate heart rate control is probably been present for 8 months or more. Plan:Continue the previous plan as listed below Daily intake and output to watch fluid balance Daily weights Low-salt diet On carvedilol Stop the digoxin Continue diuresis until dry weight is obtained Continue Cardizem to rate control Blood pressure is not can to be able to tolerate spironolactone or INEZ/ARB right now but that will be considered Risk of sudden discussed and patients were less than 30%. Possibility of an AICD discussed as well. But that would be left up to cardiology. On eliquis. Qualifiers: Heart failure type: systolic Qualified Code(s): I50.23 - Acute on chronic systolic (congestive) heart failure (3) Anasarca Conclusion/Plan: We have started IV Lasix. I told the patient she has about 8 pounds of water weight that needs to diurese off. Follow I's and O's. Low-salt diet will be ordered (4) Pleural effusion Conclusion/Plan: As in #2 (5) Hyponatremia Conclusion/Plan: This is hypervolemic hyponatremia related to volume overload. Will treat with IV diuretics. Follow I's and O's and daily weights. (6) Non-compliance with medications Conclusion/Plan: Patient gave previous hospitalist several examples of her being noncompliant with medical management: She said Cardizem CD gave her a "bad reaction" but regular Cardizem works perfectly. She said Eliquis made her foggy and confused so it was stopped and she was ordered to get Xarelto but she was too afraid to start it. She was recently told to resume Lasix but she never did, afraid that she would have a low potassium. She was instructed that it is important to take prescribed medications but to discuss side effects with her provider, so that an alternative can be ordered, but not to simply eliminate meds by herself. Both Dr. Bangura and the previous hospitalist stated that they think noncompliance is the reason for having longstanding tachycardia (poorly controlled A. fib with RVR), which may have caused the systolic heart failure. 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 She can only see bright lights, no colors, no figures. She needs to be fed. 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 She wears bilateral hearing aids, currently only the left hearing aid is in.
[2022-06-29] MEDS: SODIUM CHLORIDE FLUSH 0.9% 10 ML SYRINGE IVP PRN (21:29)
[2022-06-30] MEDS: SODIUM CHLORIDE FLUSH 0.9% 10 ML SYRINGE IVP SCH ×3 (00:12→16:57)
[2022-06-30] MEDS: FAMOTIDINE 20 MG TABLET PO SCH ×2 (08:32→21:29)
[2022-06-30] MEDS: APIXABAN 5 MG TABLET PO SCH ×2 (08:32→21:29)
[2022-06-30] MEDS: FUROSEMIDE 40 MG/4 ML VIAL IVP SCH (08:33)
[2022-06-30] MEDS: POTASSIUM CHLORIDE 20 MEQ TABLET PO SCH (08:33)
[2022-06-30] MEDS: polyethylene glycoL 3350 17 GM PACKET PO SCH (08:33)
[2022-06-30] MEDS: carvediloL 3.125 MG TABLET PO SCH (08:33)
[2022-06-30 08:34] LABS: CALCIUM 9.1 mg/dL (8.5-10.3); CREATININE 1.1 mg/dL (0.4-1.0); PHOSPHORUS 3.2 mg/dL (2.5-4.6); POTASSIUM 4.8 mmol/L (3.5-5.0)
[2022-06-30] MEDS ORDERED: DIGOXIN 500 MCG/2 ML AMP IVP SCH (09:00)
[2022-06-30] MEDS: FUROSEMIDE 20 MG/2 ML VIAL IVP SCH (15:09)
--- NOTE | 2022-06-30 15:21 | PROVIDER PROGRESS NOTE ---
Subjective - Prog Note Date Prog Note Date: 06/30/22 Prog Note Time: 15:19 - Subjective Subjective: She has many questions today. and daughter not at the bedside. But I was able to speak to her on the phone and update him. Heart rate is definitely slowed down. I had been using Cardizem, Coreg, and then added digoxin. That made her heart rate go into the 50s and 60s yesterday and bottom out her blood pressure. I stop the digoxin. She asked me what are the medications that we use for congestive heart failure and what she is getting go home on. I said that for right now she is going to go home on a blood thinner, a diuretic, and a rate lowering drug. She hates the Eliquis and feels like it is giving her a side effect. The side effect she is describing is shortness of breath and chest tightness. I asked if this could in fact just be her congestive heart failure and she thought about it for a while but just feels uneasy using Eliquis. She really likes the Cardizem. But I explained to her that beta-blockers are usually preferred with a reduced ejection fraction. She is willing to try metoprolol today. She explained to me that there has been problems in the past few months with regards to taking medicines. She feels like all of her providers were not listening to her when she would develop a side effect. But then she also admits that she and her disagree out which pill gave her what side effect. I gave her our side of the story which is that we feel that through apprehension and anxiety in her part, she was her own worst enemy. She let her heart rate stay uncontrolled for months at a time which ended up in a cardiomyopathy. She reluctantly agrees that that may have happened because she was just so fearful about all the medications. But she asked me to please, please listen to her symptoms and take them into account if she feels miserable. I promised I would. Her spirits are better. She is feeling better. Yesterday she was very fatalistic and saying that she did not want to live anymore if this is life is going to be like. Today, because she feels better, she feels like she would like to go home, and enjoy her and daughter's company. Current Medications - Current Medications Current Medications: Active Medications Acetaminophen (Acetaminophen 325 Mg Tablet) 650 mg PO Q4HR PRN PRN Reason: Pain 1 to 4, or Fever Apixaban (Apixaban 5 Mg Tablet) 5 mg PO BID [facility] Last Admin: 06/30/22 08:32 Dose: 5 mg Calamine (Calamine/Zinc Oxide 177 Ml Bottle) 1 applic TOP PRN PRN PRN Reason: SKIN CARE Carvedilol (Carvedilol 3.125 Mg Tablet) 6.25 mg PO BID [facility] Last Admin: 06/30/22 08:33 Dose: 6.25 mg Diltiazem HCl (Diltiazem 60 Mg Tablet) 60 mg PO TIDWM [facility] Last Admin: 06/30/22 12:01 Dose: Not Given Famotidine (Famotidine 20 Mg Tablet) 20 mg PO BID [facility] Last Admin: 06/30/22 08:32 Dose: 20 mg Furosemide (Furosemide 40 Mg/4 Ml Vial) 40 mg IVP DAILY [facility] Last Admin: 06/30/22 08:33 Dose: 40 mg Furosemide (Furosemide 20 Mg/2 Ml Vial) 20 mg IVP 1600 [facility] Last Admin: 06/30/22 15:09 Dose: 20 mg Polyethylene Glycol (Polyethylene Glycol 3350 17 Gm Packet) 17 gm PO DAILY [facility] Last Admin: 06/30/22 08:33 Dose: 17 gm Potassium Chloride (Potassium Chloride 20 Meq Tablet) 20 meq PO DAILYWM [facility] Last Admin: 06/30/22 08:33 Dose: 20 meq Sodium Chloride (Sodium Chloride Flush 0.9% 10 Ml Syringe) 10 ml IVP 0100,0900,1700 [facility] Last Admin: 06/30/22 08:33 Dose: 10 ml Sodium Chloride (Sodium Chloride Flush 0.9% 10 Ml Syringe) 10 ml IVP PRN PRN PRN Reason: NEEDED PER PROVIDER ORDERS Last Admin: 06/29/22 21:29 Dose: 10 ml Sacubitril/Valsartan [Entresto 24 mg-26 mg Tablet] 1 tab PO BID 06/25/22 Objective - Vital Signs/Intake & Output Reviewed Vital Signs: Yes Vital Signs: Vital Signs x48h Temp Pulse Pulse Pulse Pulse Pulse Resp 06/30/22 14:00 80 25 H 06/30/22 13:00 69 24 06/30/22 12:01 06/30/22 12:00 82 32 H 06/30/22 11:30 83 88 72 06/30/22 11:15 86 88 83 75 06/30/22 11:00 73 25 H 06/30/22 10:00 75 20 06/30/22 09:00 90 23 06/30/22 08:00 36.8 C 104 H 20 BP BP BP BP BP BP Pulse Ox 06/30/22 14:00 79/59 L 66 L 06/30/22 13:00 79/68 L 97 06/30/22 12:01 95/79 06/30/22 12:00 95/79 98 06/30/22 11:30 97/80 95/79 90/66 06/30/22 11:15 95/79 97/80 94/77 90/66 06/30/22 11:00 95/64 97 06/30/22 10:00 91/70 98 06/30/22 09:00 110/73 98 06/30/22 08:00 126/95 H 98 Intake & Output: Intake & Output 06/27/22 06/28/22 06/29/22 06/30/22 23:59 23:59 23:59 23:59 Intake Total 1386.897 138 6439 1255 Output Total 4041 832 1608 1700 Balance -443.084 110 860 -445 - Objective General Appearance: positive: Alert, Other (Laying comfortably in bed, no shortness of breath as she talks on the phone animatedly to her and then to me.) Eyes Bilateral: positive: Other (Blindness.) ENT: positive: No signs of dehydration, Other (Deaf. Has to put on her hearing aid to hear me but as long as I speak slowly she can hear me well) Neck: positive: No JVD. negative: Stiff neck Respiratory: positive: No respiratory distress. negative: Wheezes, Rales, Rhonchi Cardiovascular: positive: Irregularly irregular, Other (Heart rate is consistent ly in the 80s. Unfortunately blood pressure is low with this at 79 systolic and 95 systolic.) Abdomen: positive: Non-tender, No organomegaly, Nml bowel sounds, No distention Skin: positive: Warm, Dry Extremities: positive: Full ROM, Other (Edema in her thighs, and much less edema around her ankles and calves) Neurologic/Psychiatric: positive: Oriented x3, Motor nml. negative: CN's nml (2-12) (Deafness and blindness) - Lab Results Fish Bones: 06/28/22 05:45 06/30/22 08:14 Other Labs: Lab Results x24hrs 06/30/22 Range/Units 08:14 Sodium 131 L (135-145) mmol/L Potassium 4.8 (3.5-5.0) mmol/L Chloride 95 L (101-111) mmol/L Carbon Dioxide 28 (21-32) mmol/L Anion Gap 8.0 (6-13) BUN 16 (6-20) mg/dL Creatinine 1.1 H (0.4-1.0) mg/dL Estimated GFR (MDRD) 48 L (>89) Glucose 97 (70-100) mg/dL Calcium 9.1 (8.5-10.3) mg/dL Phosphorus 3.2 (2.5-4.6) mg/dL Magnesium 2.0 (1.7-2.8) mg/dL Assessment/Plan - Problem List (1) Atrial fibrillation with RVR Impression: Differential diagnosis of hyperthyroidism, [place] have been ruled out. Case discussed with Dr. Bangura, Her clinical trials specialist, extensively on June 28 On oral Cardizem since June 27. On Lovenox for anticoagulation and she is asking if she can be transition to pills. I told her yes but it would have to be Xarelto or Eliquis. I was able to start Eliquis at 5 mg twice daily. Pharmacy felt that we did not have to go to 10 because she had been on heparin and Lovenox. She is on Coreg and diltiazem. I stopped the Lanoxin yesterday. Parameters are to hold if pulse drops below 60. With stopping the Lanoxin heart rate is staying stable. Plan: Stop Coreg, stop Cardizem and see if she will tolerate metoprolol 25 p.o. twice daily Continue Eliquis 5 mg twice a day but it will be Xarelto at discharge because as what she prefers Lasix 40 mg in the morning and 20 mg in the afternoon (2) Acute on chronic systolic heart failure On the previous week of hospitalist service, that hospitalist, as a board- certified [employer] Specialist is credentialed here to interpret Echoes; she performed a complete Echo exam on 06/26. The Echo showed: Four-chamber dilatation. Concentric LVH with severely depressed global LV function, EF 15 - 20%. Right ventricular function moderately depressed. Heavily calcified mitral annulus, mitral leaflets and aortic leaflets. Tricuspid and pulmonic valves appear structurally normal. Doppler of the valves shows moderate-severe mitral regurgitation and tricuspid regurgitation. There is decreased aortic valve mobility, due to low cardiac output and not from aortic stenosis. Pulmonary artery pressure could not be accurately assessed from the TR jet. No pericardial effusion seen. We were able to get a formal echocardiogram 06/28 and preliminary report shows moderate to severe left ventricular enlargement. Ejection fraction is severely impaired at less than 20%. The calculated left ventricular ejection fraction is 17%. Severe global hypokinesis of LV contractility. Severe right ventricular enlargement. Right ventricular systolic function is 24%. Severe left and right atrial enlargement. Aortic valve mildly calcified. Mitral valve thickened with moderate mitral calcification and mild to moderate mitral regurgitation. She has mild to moderate tricuspid regurgitation. The echo will be looked at by Dr. Bangura. Right now we think that her cardiomyopathy is due to inadequate heart rate control is probably been present for 8 months or more. Plan:Continue the previous plan as listed below Daily intake and output to watch fluid balance Daily weights Low-salt diet As above with changing to metoprolol and stopping Coreg and Cardizem. Slightly increased the Lasix. Continue diuresis until dry weight is obtained Blood pressure is not able to tolerate spironolactone or INEZ/ARB right now but that will be considered. I explained to her that we will be sending her home on those 3 medications of diuretic, rate lowering medication, and blood thinner. Down the road one of the clinical trials specialist that she sees may add an INEZ inhibitor and may add spironolactone and explained to her with the mechanism of action is for those medications. Risk of sudden discussed and patients were less than 30%. Possibility of an AICD discussed as well. But that would be left up to cardiology. Qualifiers: Heart failure type: systolic Qualified Code(s): I50.23 - Acute on chronic systolic (congestive) heart failure (3) Anasarca Conclusion/Plan: Weight on admission was 84.8 kg. She dropped to 76 kg on June 28. Then she was 77 yesterday and 78 today. Increase Lasix from 40 mg daily to 40 mg in the morning and 20 mg in the afternoon Follow I's and O's. Low-salt diet will be ordered (4) Pleural effusion Conclusion/Plan: As in #2 (5) Hyponatremia Conclusion/Plan: This is hypervolemic hyponatremia related to volume overload. Will treat with IV diuretics. Follow I's and O's and daily weights. (6) Non-compliance with medications Conclusion/Plan: Patient gave previous hospitalist several examples of her being noncompliant with medical management: She said Cardizem CD gave her a "bad reaction" but regular Cardizem works perfectly. She said Eliquis made her foggy and confused so it was stopped and she was ordered to get Xarelto but she was too afraid to start it. She was recently told to resume Lasix but she never did, afraid that she would have a low potassium. She was instructed that it is important to take prescribed medications but to discuss side effects with her provider, so that an alternative can be ordered, but not to simply eliminate meds by herself. Both Dr. Bangura and the previous hospitalist stated that they think noncompliance is the reason for having long standing tachycardia (poorly controlled A. fib with RVR), which may have caused the systolic heart failure. 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 She can only see bright lights, no colors, no figures. She needs to be fed. 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 She wears bilateral hearing aids, currently only the left hearing aid is in.
[2022-06-30] MEDS: SODIUM CHLORIDE FLUSH 0.9% 10 ML SYRINGE IVP PRN (19:39)
[2022-06-30] MEDS: METOPROLOL TARTRATE 25 MG TABLET PO SCH (21:29)
[2022-07-01] MEDS: SODIUM CHLORIDE FLUSH 0.9% 10 ML SYRINGE IVP SCH ×3 (04:43→17:10)
[2022-07-01] MEDS: CALAMINE/ZINC OXIDE 177 ML BOTTLE TOP PRN (05:27)
[2022-07-01 08:16] LABS: CREATININE 1.2 mg/dL (0.4-1.0); POTASSIUM 3.7 mmol/L (3.5-5.0)
[2022-07-01] MEDS: POTASSIUM CHLORIDE 20 MEQ TABLET PO SCH (08:18)
[2022-07-01] MEDS: FAMOTIDINE 20 MG TABLET PO SCH ×2 (08:18→21:20)
[2022-07-01] MEDS: METOPROLOL TARTRATE 25 MG TABLET PO SCH ×2 (08:18→21:18)
[2022-07-01] MEDS: APIXABAN 5 MG TABLET PO SCH ×2 (08:18→21:20)
[2022-07-01] MEDS: FUROSEMIDE 40 MG/4 ML VIAL IVP SCH (08:19)
[2022-07-01] MEDS: polyethylene glycoL 3350 17 GM PACKET PO SCH (08:20)
[2022-07-01] MEDS ORDERED: METOPROLOL 5 MG/5 ML VIAL IVP STA (09:03)
[2022-07-01] MEDS: SODIUM CHLORIDE FLUSH 0.9% 10 ML SYRINGE IVP PRN (09:19)
[2022-07-01] MEDS: FUROSEMIDE 20 MG/2 ML VIAL IVP SCH (17:10)
--- NOTE | 2022-07-01 18:01 | PROVIDER PROGRESS NOTE ---
Subjective - Prog Note Date Prog Note Date: 07/01/22 Prog Note Time: 17:59 - Subjective Subjective: She feels like the Eliquis and metoprolol have her with chest tightness and fatigue. Vitals are stable, oxygen is stable. Current Medications - Current Medications Current Medications: Active Medications Acetaminophen (Acetaminophen 325 Mg Tablet) 650 mg PO Q4HR PRN PRN Reason: Pain 1 to 4, or Fever Apixaban (Apixaban 5 Mg Tablet) 5 mg PO BID [facility] Last Admin: 07/01/22 08:18 Dose: 5 mg Calamine (Calamine/Zinc Oxide 177 Ml Bottle) 1 applic TOP PRN PRN PRN Reason: SKIN CARE Last Admin: 07/01/22 05:27 Dose: 1 applic Famotidine (Famotidine 20 Mg Tablet) 20 mg PO BID [facility] Last Admin: 07/01/22 08:18 Dose: 20 mg Furosemide (Furosemide 40 Mg/4 Ml Vial) 40 mg IVP DAILY [facility] Last Admin: 07/01/22 08:19 Dose: 40 mg Furosemide (Furosemide 20 Mg/2 Ml Vial) 20 mg IVP 1600 [facility] Last Admin: 07/01/22 17:10 Dose: 20 mg Metoprolol Tartrate (Metoprolol Tartrate 25 Mg Tablet) 25 mg PO BID [facility] Last Admin: 07/01/22 08:18 Dose: 25 mg Polyethylene Glycol (Polyethylene Glycol 3350 17 Gm Packet) 17 gm PO DAILY [facility] Last Admin: 07/01/22 08:20 Dose: Not Given Potassium Chloride (Potassium Chloride 20 Meq Tablet) 20 meq PO DAILYWM [facility] Last Admin: 07/01/22 08:18 Dose: 20 meq Sodium Chloride (Sodium Chloride Flush 0.9% 10 Ml Syringe) 10 ml IVP 0100,0900,1700 [facility] Last Admin: 07/01/22 17:10 Dose: 10 ml Sodium Chloride (Sodium Chloride Flush 0.9% 10 Ml Syringe) 10 ml IVP PRN PRN PRN Reason: NEEDED PER PROVIDER ORDERS Last Admin: 07/01/22 09:19 Dose: 10 ml Sacubitril/Valsartan [Entresto 24 mg-26 mg Tablet] 1 tab PO BID 06/25/22 Objective - Vital Signs/Intake & Output Reviewed Vital Signs: Yes Vital Signs: Vital Signs x48h Temp Pulse Resp BP BP Pulse Ox 07/01/22 15:44 36.5 C 105 H 16 102/72 95 07/01/22 13:03 118 H 98/77 07/01/22 12:45 88 85/55 L 07/01/22 12:40 102 H 84/62 L 07/01/22 10:45 118 H 92/53 L 07/01/22 10:30 114 H 83/67 L 07/01/22 10:15 113 H 101/77 Intake & Output: Intake & Output 06/28/22 06/29/22 06/30/22 07/01/22 23:59 23:59 23:59 23:59 Intake Total 810 2560 1555 360 Output Total 700 1700 1900 1200 Balance 110 860 -345 -840 - Objective General Appearance: positive: Alert, Mild distress Eyes Bilateral: positive: EOMI ENT: positive: No signs of dehydration Neck: positive: No JVD. negative: Stiff neck Respiratory: positive: No respiratory distress, Rales (fine at bases). negative: Wheezes, Rhonchi Cardiovascular: positive: Irregularly irregular, Tachycardia (at times but low 100s again) Abdomen: positive: Non-tender, No organomegaly, Nml bowel sounds, No distention Skin: positive: Warm, Dry Extremities: positive: Full ROM, Pedal edema (to thighs) Neurologic/Psychiatric: positive: Oriented x3, Motor nml. negative: CN's nml (2-12) (blind and deaf) - Lab Results Fish Bones: 06/28/22 05:45 07/01/22 08:02 Other Labs: Lab Results x24hrs 07/01/22 07/01/22 Range/Units 08:02 08:02 Sodium 132 L (135-145) mmol/L Potassium 3.7 (3.5-5.0) mmol/L Chloride 94 L (101-111) mmol/L Carbon Dioxide 27 (21-32) mmol/L Anion Gap 11.0 (6-13) BUN 17 (6-20) mg/dL Creatinine 1.2 H (0.4-1.0) mg/dL Estimated GFR (MDRD) 44 L (>89) Glucose 88 (70-100) mg/dL Calcium 9.0 (8.5-10.3) mg/dL B-Natriuretic Peptide 2519 H (5-100) pg/mL Assessment/Plan - Problem List (1) Atrial fibrillation with RVR Impression: Differential diagnosis of hyperthyroidism, [place] have been ruled out. Case discussed with Dr. Bangura, Her health spa manager, extensively on June 28 On oral Cardizem since June 27. On Lovenox for anticoagulation and she is asking if she can be transition to pills. I told her yes but it would have to be Xarelto or Eliquis. I was able to start Eliquis at 5 mg twice daily. Pharmacy felt that we did not have to go to because she had been on heparin and Lovenox. She is on Coreg and diltiazem. I stopped the Lanoxin yesterday. Parameters are to hold if pulse drops below 60. With stopping the Lanoxin heart rate is staying stable. Plan: Stop Coreg, stop Cardizem and see if she will tolerate metoprolol 25 p.o. twice daily. She is not liking it. She just feels more tired with it. Unfortunately rate control is not being achieved with metoprolol. Blood pressure is a little bit low again. Her blood pressure was better on Cardizem by just a bit. Continue Eliquis 5 mg twice a day but it will be Xarelto at discharge because as what she prefers Lasix 40 mg in the morning and 20 mg in the afternoon (2) Acute on chronic systolic heart failure On the previous week of hospitalist service, that hospitalist, as a board- certified Security Officer Supervisor is credentialed here to interpret Echoes; she performed a complete Echo exam on 06/26. The Echo showed: Four-chamber dilatation. Concentric LVH with severely depressed global LV function, EF 15 - 20%. Right ventricular function moderately depressed. Heavily calcified mitral annulus, mitral leaflets and aortic leaflets. Tricuspid and pulmonic valves appear structurally normal. Doppler of the valves shows moderate-severe mitral regurgitation and tricuspid regurgitation. There is decreased aortic valve mobility, due to low cardiac output and not from aortic stenosis. Pulmonary artery pressure could not be accurately assessed from the TR jet. No pericardial effusion seen. We were able to get a formal echocardiogram 06/28 and preliminary report shows moderate to severe left ventricular enlargement. Ejection fraction is severely impaired at less than 20%. The calculated left ventricular ejection fraction is 17%. Severe global hypokinesis of LV contractility. Severe right ventricular enlargement. Right ventricular systolic function is 24%. Severe left and right atrial enlargement. Aortic valve mildly calcified. Mitral valve thickened with moderate mitral calcification and mild to moderate mitral regurgitation. She has mild to moderate tricuspid regurgitation. The echo will be looked at by Dr. Bangura. Right now we think that her cardiomyopathy is due to inadequate heart rate control is probably been present for 8 months or more. Plan:Continue the previous plan as listed below Daily intake and output to watch fluid balance Daily weights Low-salt diet As above with changing to metoprolol and stopping Coreg and Cardizem. Slightly increased the Lasix. Continue diuresis until dry weight is obtained Blood pressure is not able to tolerate spironolactone or INEZ/ARB right now but that will be considered. I explained to her that we will be sending her home on those 3 medications of diuretic, rate lowering medication, and blood thinner. Down the road one of the health spa manager that she sees may add an INEZ inhibitor and may add spironolactone and explained to her with the mechanism of action is for those medications. Risk of sudden discussed and patients were less than 30%. Possibility of an AICD discussed as well. But that would be left up to cardiology. Qualifiers: Heart failure type: systolic Qualified Code(s): I50.23 - Acute on chronic systolic (congestive) heart failure (3) Anasarca Conclusion/Plan: Weight on admission was 84.8 kg. She dropped to 76 kg on June 28. Then she was 77 yesterday and 78 today. On increased Lasix from 40 mg daily to 40 mg in the morning and 20 mg in the afternoon. Very slight slight loss of weight today. We will continue to monitor. Follow I's and O's. Low-salt diet will be ordered (4) Pleural effusion Conclusion/Plan: As in #2 (5) Hyponatremia Conclusion/Plan: This is hypervolemic hyponatremia related to volume overload. Will treat with IV diuretics. Follow I's and O's and daily weights. (6) Non-compliance with medications Conclusion/Plan: Patient gave previous hospitalist several examples of her being noncompliant with medical management: She said Cardizem CD gave her a "bad reaction" but regular Cardizem works perfectly. She said Eliquis made her foggy and confused so it was stopped and she was ordered to get Xarelto but she was too afraid to start it. She was recently told to resume Lasix but she never did, afraid that she would have a low potassium. She was instructed that it is important to take prescribed medications but to discuss side effects with her provider, so that an alternative can be ordered, but not to simply eliminate meds by herself. Both Dr. Bangura and the previous hospitalist stated that they think noncompliance is the reason for having longstanding tachycardia (poorly controlled A. fib with RVR), which may have caused the systolic heart failure. 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 She can only see bright lights, no colors, no figures. She needs to be fed. 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 She wears bilateral hearing aids, currently only the left hearing aid is in.
[2022-07-02] MEDS: SODIUM CHLORIDE FLUSH 0.9% 10 ML SYRINGE IVP SCH ×3 (00:45→16:11)
[2022-07-02 05:57] LABS: CALCIUM 8.7 mg/dL (8.5-10.3); CREATININE 1.2 mg/dL (0.4-1.0); POTASSIUM 3.1 mmol/L (3.5-5.0)
[2022-07-02] MEDS: FUROSEMIDE 40 MG/4 ML VIAL IVP SCH (09:31)
[2022-07-02] MEDS: FAMOTIDINE 20 MG TABLET PO SCH ×2 (09:32→21:22)
[2022-07-02] MEDS: APIXABAN 5 MG TABLET PO SCH ×2 (09:32→21:21)
[2022-07-02] MEDS: METOPROLOL TARTRATE 25 MG TABLET PO SCH (09:37)
[2022-07-02] MEDS: polyethylene glycoL 3350 17 GM PACKET PO SCH (09:45)
[2022-07-02] MEDS: POTASSIUM CHLORIDE 20 MEQ TABLET PO SCH ×2 (14:54→17:07)
[2022-07-02] MEDS: FUROSEMIDE 20 MG/2 ML VIAL IVP SCH (16:11)
--- NOTE | 2022-07-02 17:24 | PROVIDER PROGRESS NOTE ---
Subjective - Prog Note Date Prog Note Date: 07/02/22 Prog Note Time: 17:22 - Subjective Subjective: Although her heart rate and blood pressure have been very good since that put her on metoprolol and increase Lasix, she feels that the metoprolol really makes her feel wiped out and exhausted. She really really does not want to do it. Otherwise stable. Walking in the room to the bathroom with the aid of of 1 standby assist. She does get tachycardic to the 140s when she does that and then she sits down and recovers within 2 to 3 minutes down to 90. She is 96% on room air. On June 30 she was -345 cc. On July 01 she was -540 cc. Weight is come down from 78 kg to 77 kg. Current Medications - Current Medications Current Medications: Active Medications Acetaminophen (Acetaminophen 325 Mg Tablet) 650 mg PO Q4HR PRN PRN Reason: Pain 1 to 4, or Fever Apixaban (Apixaban 5 Mg Tablet) 5 mg PO BID [facility] Last Admin: 07/02/22 09:32 Dose: 5 mg Calamine (Calamine/Zinc Oxide 177 Ml Bottle) 1 applic TOP PRN PRN PRN Reason: SKIN CARE Last Admin: 07/01/22 05:27 Dose: 1 applic Diltiazem HCl (Diltiazem 60 Mg Tablet) 60 mg PO TID [facility] Last Admin: 07/02/22 15:54 Dose: 60 mg Famotidine (Famotidine 20 Mg Tablet) 20 mg PO BID [facility] Last Admin: 07/02/22 09:32 Dose: 20 mg Furosemide (Furosemide 40 Mg/4 Ml Vial) 40 mg IVP DAILY [facility] Last Admin: 07/02/22 09:31 Dose: 40 mg Furosemide (Furosemide 20 Mg/2 Ml Vial) 20 mg IVP 1600 [facility] Last Admin: 07/02/22 16:11 Dose: 20 mg Polyethylene Glycol (Polyethylene Glycol 3350 17 Gm Packet) 17 gm PO DAILY [facility] Last Admin: 07/02/22 09:45 Dose: Not Given Potassium Chloride (Potassium Chloride 20 Meq Tablet) 20 meq PO BIDWM [facility] Last Admin: 07/02/22 17:07 Dose: 20 meq Sodium Chloride (Sodium Chloride Flush 0.9% 10 Ml Syringe) 10 ml IVP 0100,0900,1700 [facility] Last Admin: 07/02/22 16:11 Dose: 10 ml Sodium Chloride (Sodium Chloride Flush 0.9% 10 Ml Syringe) 10 ml IVP PRN PRN PRN Reason: NEEDED PER PROVIDER ORDERS Last Admin: 07/01/22 09:19 Dose: 10 ml Sacubitril/Valsartan [Entresto 24 mg-26 mg Tablet] 1 tab PO BID 06/25/22 Objective - Vital Signs/Intake & Output Reviewed Vital Signs: Yes Vital Signs: Vital Signs x48h Temp Pulse Resp BP BP Pulse Ox 07/02/22 16:04 36.5 C 63 24 107/77 96 07/02/22 16:00 36.5 C 79 16 106/79 94 07/02/22 15:54 106/79 07/02/22 14:02 36.4 C L 90 18 94/71 96 07/02/22 09:37 120/74 Intake & Output: Intake & Output 06/29/22 06/30/22 07/01/22 07/02/22 23:59 23:59 23:59 23:59 Intake Total 2560 1555 660 720 Output Total 1700 1900 1200 Balance 860 345 -540 720 - Objective General Appearance: positive: Alert Eyes Bilateral: positive: EOMI ENT: positive: Pharynx nml Neck: positive: No JVD Respiratory: positive: No respiratory distress (At rest. She gets a little tachypneic and increases her respiratory rate by for a minute with walking to the toilet and back but recovers quickly), Wheezes (Faint wheezes come and go. Not always present.), Other (Diminished lung sounds at the bases.). negative: Rales, Rhonchi Cardiovascular: positive: Irregularly irregular, Tachycardia (Tachycardia occurs only with exertion. Minimal exertion of a 10 foot walk to the toilet. Takes 2 minutes to recover) Abdomen: positive: Non-tender, No organomegaly, Nml bowel sounds, No distention Skin: positive: Warm, Dry Extremities: positive: Full ROM, Pedal edema (But much improved over the last 2 to 3 days. Slowly leaving her legs. Thighs are better. Still with edema around her ankles and calves) Neurologic/Psychiatric: positive: Oriented x3, Motor nml, Sensation nml. negative: CN's nml (2-12) (Blindness and deafness. You must always speak to her with her hearing aid in place) - Lab Results Fish Bones: 06/28/22 05:45 07/02/22 05:11 Other Labs: Lab Results x24hrs 07/02/22 07/02/22 Range/Units 05:11 05:11 Sodium 131 L (135-145) mmol/L Potassium 3.1 L (3.5-5.0) mmol/L Chloride 92 L (101-111) mmol/L Carbon Dioxide 29 (21-32) mmol/L Anion Gap 10.0 (6-13) BUN 17 (6-20) mg/dL Creatinine 1.2 H (0.4-1.0) mg/dL Estimated GFR (MDRD) 44 L (>89) Glucose 90 (70-100) mg/dL Calcium 8.7 (8.5-10.3) mg/dL B-Natriuretic Peptide 2646 H (5-100) pg/mL Assessment/Plan - Problem List (1) Atrial fibrillation with RVR Impression: Differential diagnosis of hyperthyroidism, GA have been ruled out. Case discussed with Dr. Bangura, Her proposal analyst, extensively on June 28 On oral Cardizem since June 27. On Lovenox for anticoagulation and she is asking if she can be transition to pills. I told her yes but it would have to be Xarelto or Eliquis. I was able to start Eliquis at 5 mg twice daily. Pharmacy felt that we did not have to go to because she had been on heparin and Lovenox. She was on Coreg, diltiazem, and I added Lanoxin. I had to stop the Lanoxin on June 30 because she came too bradycardic. I ahceived good rate control and increased her lasix to diurese her more since her weight had come up. On the I stopped the Coreg and stop the Cardizem since her rate was controlled and wanted to really try metoprolol since it was the better indicated drug and congestive heart failure. It took quite a bit of persuading to get her to try this because she feels Coreg makes her miserable. Yesterday afternoon she did not like it but was willing to try it again this morning. This morning she tells me that the metoprolol just wiped her out. As such I am going back to the Cardizem at 60 mg p.o. 3 times daily. Lasix 40 in the morning and 20 in the afternoon. See how her heart rate does with this. I think she is going to have exertion induced tachycardia for quite some time and I do not think any to keep her in the hospital for that. I am hoping to be able to discharge her by tomorrow. (2) Acute on chronic systolic heart failure On the previous week of hospitalist service, that hospitalist, as a board- certified Checker Loader is credentialed here to interpret Echoes; she performed a complete Echo exam on 06/26. The Echo showed: Four-chamber dilatation. Concentric LVH with severely depressed global LV function, EF 15 - 20%. Right ventricular function moderately depressed. Heavily calcified mitral annulus, mitral leaflets and aortic leaflets. Tricuspid and pulmonic valves appear structurally normal. Doppler of the valves shows moderate-severe mitral regurgitation and tricuspid regurgitation. There is decreased aortic valve mobility, due to low cardiac output and not from aortic stenosis. Pulmonary artery pressure could not be accurately assessed from the TR jet. No pericardial effusion seen. We were able to get a formal echocardiogram 06/28 and preliminary report shows moderate to severe left ventricular enlargement. Ejection fraction is severely impaired at less than 20%. The calculated left ventricular ejection fraction is 17%. Severe global hypokinesis of LV contractility. Severe right ventricular enlargement. Right ventricular systolic function is 24%. Severe left and right atrial enlargement. Aortic valve mildly calcified. Mitral valve thickened with moderate mitral calcification and mild to moderate mitral regurgitation. She has mild to moderate tricuspid regurgitation. Right now we think that her cardiomyopathy is due to inadequate heart rate control is probably been present for 8 months or more. Plan:Continue the previous plan as listed below. Case was discussed with her proposal analyst, Dr. Bangura who requested that we try and slow down her heart rate and dry her out as much as possible. Daily intake and output to watch fluid balance Daily weights Low-salt diet As above with resuming Cardizem. Discontinue metoprolol. Continue Eliquis. In the outpatient setting Eliquis will be changed to Xarelto Continue diuresis until dry weight is obtained Blood pressure is not able to tolerate spironolactone or INEZ/ARB right now but that will be considered. I explained to her that we will be sending her home on those 3 medications of diuretic, rate lowering medication, and blood thinner. Down the road one of the proposal analyst that she sees may add an INEZ inhibitor and may add spironolactone and explained to her with the mechanism of action is for those medications. Risk of sudden discussed and patients were less than 30%. Possibility of an AICD discussed as well. But that would be left up to cardiology. Qualifiers: Heart failure type: systolic Qualified Code(s): I50.23 - Acute on chronic systolic (congestive) heart failure (3) Anasarca Conclusion/Plan: Weight on admission was 84.8 kg. She dropped to 76 kg on June 28. She started creeping up to 77 kg and then was 78 kg. I increased her Lasix a bit and she is back down to 77 kg. We will continue to monitor. Follow I's and O's. Low-salt diet will be ordered (4) Pleural effusion Conclusion/Plan: As in #2 (5) Hyponatremia Conclusion/Plan: This is hypervolemic hyponatremia related to volume overload. Will treat with IV diuretics. Follow I's and O's and daily weights. (6) Non-compliance with medications Conclusion/Plan: Patient gave previous hospitalist several examples of her being noncompliant with medical management: She said Cardizem CD gave her a "bad reaction" but regular Cardizem works perfectly. She said Eliquis made her foggy and confused so it was stopped and she was ordered to get Xarelto but she was too afraid to start it. She was recently told to resume Lasix but she never did, afraid that she would have a low potassium. She was instructed that it is important to take prescribed medications but to discuss side effects with her provider, so that an alternative can be ordered, but not to simply eliminate meds by herself. Both Dr. Bangura and the previous hospitalist stated that they think noncompliance is the reason for having longstanding tachycardia (poorly controlled A. fib with RVR), which may have caused the systolic heart failure. 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 She can only see bright lights, no colors, no figures. She needs to be fed. 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 She wears bilateral hearing aids, currently only the left hearing aid is in.
[2022-07-02] MEDS: CALAMINE/ZINC OXIDE 177 ML BOTTLE TOP PRN (21:48)
[2022-07-03] MEDS: SODIUM CHLORIDE FLUSH 0.9% 10 ML SYRINGE IVP SCH ×2 (00:15→10:18)
[2022-07-03] MEDS ORDERED: POTASSIUM CHLORIDE 20 MEQ TABLET PO ONE (08:04)
--- NOTE | 2022-07-03 09:13 | Discharge Plan ---
Discharge Plan Problem Reviewed?: Yes Disposition: Home Health Service Condition: Fair Prescriptions: diltiaZEM [Cardizem] 60 mg PO TID #180 tab Apixaban [Eliquis] 5 mg PO BID #60 tab Potassium Chloride [K-Dur] 20 meq PO BIDWM #60 tab Furosemide [Lasix] 40 mg PO DAILY #90 tablet Diet: Low Sodium Activity Restrictions: Activity as Tolerated Shower Restrictions: No Driving Restrictions: Yes (no driving) Assistance Devices: [facility] Concerns: You have had a rapid heart rate called atrial fibrillation since approximately December of this year. Unfortunately the heart rate was not able to be controlled and it work the muscles of the heart too much. That made the muscles very weak and that in turn called congestive heart failure. Our goal was to slow down your heart rate, because you to have increased urination to get rid of excess fluid, and we think we have achieved that goal. You were still very weak, tired. You are not on the therapy we would like because you feel that you are having reactions to the standard medications we give for congestive heart failure. As such we are only discharging you on 3 medicines right now. Plan of Treatment: 1. The medications you will be discharged on are: + Cardizem 60 mg tablets, take 1 tablet 3 times a day. This is to slow down y our heart rate. We would prefer metoprolol but you really do not like it. + Lasix 20 mg tablet. Take 2 in the morning and 1 in the afternoon. This is a medicine that makes you urinate to get rid of excess fluid but congestive heart failure causes you to accumulate + A blood thinner called Eliquis. You take the blood thinner because Eliquis will reduce the risk of stroke from atrial fibrillation and clot development in your heart from congestive heart failure. You are not sure if you want to keep on taking Eliquis and you want a wait and see. If you do stop the Eliquis please let Dr. Bangura or cardiology know and switch to Xarelto. + Potassium. Lasix causes you to pee out potassium. So I am giving you a potassium tablets to supplement you twice a day. 2. Please see a flow match sofa cutter in the next 1 to [address] you like Dr. Bangura, and wish you could stay with them, you are not able to go to the [facility] to see [place]. You are thinking of switching over to a flow match sofa cutter in [place] since it is easier for you to get there. The group you would like to see his [facility] cardiology. I have given you the office phone number for you to call them and establish yourself with them. 3. Please weigh yourself daily. If you gain more than 3 to 4 pounds in the course of 2 days, please let your flow match sofa cutter or your primary care provider know. 4. Please eat a low-salt diet. Try and counteract your sodium and do not eat more than 2000 mg or 2 g. 5. Although you can drink what ever you would like, we would prefer that you not drink more than 1-1/2 L of fluid a day. 6. Because your congestive heart failure is very severe, and the pump mechanism of your heart muscle is very low and badly working, you may be a candidate for something called an automatic implantable defibrillator. People who have low ejection fractions like yourself are sometimes at risk for sudden . Their heart develops a malignant arrhythmia and you suddenly passed out. A defibrillator would automatically shock your heart. It is much like a pacemaker and is a little battery box in the front of your chest. Please ask your flow match sofa cutter if you are a candidate for that. Care Goals: You would like to stabilize your congestive heart failure so that you are not so short of breath. You would like to be more independent so that you do not have to rely on your . The both of you already take care I have a daughter that has developmental delay. You would like to participate in her caregiving. Assessment: You have a strong anxiety and fear about your health. On the one hand you know you need to take your medicine but on the other hand you are fearful of all the side effects medicine gives you so you hesitate to be compliant with our instructions. All I can assess that you please, please take your medications on a regular basis. They will hopefully help you live longer and avoid coming back to the hospital. If you stop taking your medicines or change how you take them please let your flow match sofa cutter know. Follow-Up Care: Home Health - RN, Home Health - PT, Home Health - OT No Smoking: If you smoke, Please STOP! Call for help.
--- NOTE | 2022-07-03 09:25 | DISCHARGE SUMMARY ---
Discharge Summary Admit Date: 06/26/22 Discharge Date: 07/03/22 Discharging Provider: Allyn Fang MD Primary Care Provider: Marvin Hough MD Code Status: Do Not Attempt Resuscitation Condition at Discharge: Fair Discharge Disposition: 06 Home Health Service - DIAGNOSES Discharge Diagnoses with Status of Each Condition: 1. Acute on chronic systolic heart failure 2. 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 Uncontrolled atrial fibrillation with RVR for 8 months 4. Anasarca 5. Bilateral pleural effusions 6. Hyponatremia 7. Noncompliance with medications 8. Blindness of both eyes 9. Deafness 10. 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 Both started when she was young and progressively worsened and she is now legally blind and needs hearing aids in both ears. She has a Hx of atrial fib and probable systolic heart failure. The says her symptoms started in December 2021 with shortness of breath. She has been on oral Cardizem, Eliquis and Entresto and sees Dr. Bangura for Cardiology. She admits to not taking the Eliquis because it made her feel "weak and confused", so it was changed to Xarelto which she has been too afraid to start. She was on Lasix for a short time and cannot remember why that was stopped, and how far back. She has never had a stress test or coronary angio We have no records of an Echo or what her ejection fraction is, but is presumed to be low because of the prescribed Entresto. She wore a Zio patch in December-January of this year, that showed 3 days of HRs at 140 continuous. She has continued to have rapid heart rates and her Fixed Income Manager advised her to come to the ED and she came yesterday. She was in A. fib-flutter at a rate of 140, her blood pressure was "soft". She was started on a Cardizem drip and heart rate improved to 100 however now has gone up again to 120 and 130. Her other work-up shows that she has anasarca with 4+ edema to her thighs, bilateral pleural effusions, right greater than left, very elevated BNP of 2700, elevated troponins (but troponin results are "flat", and not doubling). She started to get diuresis with IV Lasix given x1 in the ED. She had 1 episode of chest pain while in the ED that stopped on its own. She was then started on a Heparin drip. Initial plan of the ED provider was to have her transferred out to higher level of care. But after the patient had goals of care discussed, she stated she wanted to remain here and not be transferred. The ED provider reached out to the Hospitalist team to have her admitted for continuing treatment of A. fib with RVR and anasarca. She will be admitted to the ICU on a Cardizem drip. I discussed her CODE BLUE wishes and the patient wants to be a DNR. History - Past Medical History Cardiovascular: reports: Congestive heart failure, Atrial fibrillation Respiratory: reports: None Neuro: reports: Other (Blindness, deafness) Endocrine/Autoimmune: reports: None GI: reports: None MOTION PICTURE PROJECTIONIST: reports: None : reports: None HEENT: reports: Chronic vision loss (From retinitis pigmentosa which started at a young age and should be came completely blind except of bright lights, 2 to 3 years ago), Other (Deafness that started when she was younger and she now wears bilateral hearing aids) Psych: reports: None Musculoskeletal: reports: None Derm: reports: None MRSA Hx?: No - Past Surgical History HEENT: reports: Other (Laser eye surgery) - CONSULTS | PROCEDURES Procedures: Chest x-ray with moderate right-sided pleural effusion and a small left-sided pleural effusion. Interstitial prominence and cardiomegaly. Echocardiogram shows a severely dilated left ventricle with severe global hypokinesis, ejection fraction 10 to 15%, left atrium severely dilated. Her right ventricle is moderately to severely dilated with moderate to severe reduced function. Moderate pulmonary hypertension. Moderate mitral regurg. Large left pleural effusion, atrial fibrillation. - HOSPITAL COURSE Hospital Course: She was a more complicated patient to manage than usual. She has a high anxiety level about not only her own health and the realization that her delayed lack of getting her heart rate under control resulted in cardiomyopathy but also the medications that go with this. She has been very noncompliant in the outpatient setting because of these fears. She would always be frozen in her thought process and overwhelmed about what she needed to do next. She also found it a barrier to her care [place] beef ribber[place] Although Dr. Bangura does come to the [facility], he comes about once a month and his clinic is full. So between her fear, and logistical barriers to getting to see her beef ribber, she was basically uncontrolled A. fib for about 8 months. A 24-hour Zio patch prior to admission showed an A. fib rate of 140 24 hours a day for the 3 days the Zio patch was on. 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 Ejection fraction is very low. Below 20%. We had her on Coreg, Lanoxin, Lasix. I spoke to Dr. Bangura and he recommended changing her to metoprolol. By then we had also added Cardizem to control her heart rate. We discussed that Cardizem might be contraindicated in such poor ejection fraction. But the patient refused to do the metoprolol, she tried it for a day and was miserable. So we had to go back to short acting Cardizem. She does not like long-acting Cardizem. Combination of Cardizem and Lanoxin resulted in bradycardia. As such the patient has agreed to Lasix 40 mg in the morning, 20 mg in the afternoon. Cardizem 60 mg 3 times a day. She has been on Eliquis while here and feels like it is a medication that makes her itch but she is not sure. I did give her the option of Xarelto and actually called into her pharmacy but she changed her mind at the last second so she is back on Eliquis. I strongly encouraged her to please, please see Dr. Bangura in follow-up. But she thinks that she may be leaving Dr. Bangura because of the logistics of seeing him in his clinic, and may be seeing [facility] cardiology in [place]. I also explained that because of her low ejection fraction she is at risk for sudden and may be a candidate for an AICD. There were moments that she expressed a desire to transition to only comfort measures. She did not want to do this anymore. But she and her spoke and she told me that she was just "having a bad day". She does not want to transition to comfort measures and wants to be able to come to the hospital when she needs to. When she was admitted she was at 84 kg. We diuresed her down to 76.5. She will need close follow-up of her weights in the outpatient setting and close follow-up of her compliance. I am requesting home health RN to weigh her, check her blood pressure, check her pulse. She is very deconditioned and needs PT and OT. Dyspnea on exertion also requires a bath aide. Discharge weight is 76.5. Temperature 36.5. Heart rate 80. Blood pressure 114/81. She is 5 foot 7 inches. Blind, very hard of hearing female (she must have her hearing aid in for you to speak to her). Minimal JVD at 45 degrees. Diminished breath sounds at bases but no crackles. She can get tachypneic when anxious and when having to walk more than 6 or 7 feet. But she is able to walk 20 feet, and was able to navigate steps with physical therapy to help her get home. She will need a walker at home. She is a irregular rate and rhythm with a his systolic ejection murmur. I also hear a diastolic murmur. Abdomen is soft, nontender. Last bowel movement was June 30. When she presented she had severe anasarca from the waist down. She continues to have pitting edema but mainly trace around her calves and shins and 1+ around her ankles. Greater than 30 minutes spent coordinating discharge. I have explained to her that down the road her beef ribber may add an INEZ inhibitor or an ARB. She is not enthusiastic about this and really wants to minimize the amount of medicine she takes. I have carefully explained to her over and over again that all of these medications result in less hospitalizations and improved quality of life for the patient. To please consider them and do not refuse to take them out of hand. She did not want me to start an INEZ inhibitor or ARB while she was here. She refused to take the Coreg and the metoprolol. - ALLERGIES Allergies/Adverse Reactions: Allergies Allergy/AdvReac Type Severity Reaction Status Date / Time No Known Drug Allergies Allergy Verified 06/25/22 15:15 - MEDICATIONS Home Medications: Ambulatory Orders Medication Instructions Recorded Confirmed Apixaban [Eliquis] 5 mg PO BID #60 tab 07/03/22 Furosemide [Lasix] 40 mg PO DAILY #90 tablet 07/03/22 Potassium Chloride [K-Dur] 20 meq PO BIDWM #60 tab 07/03/22 diltiaZEM [Cardizem] 60 mg PO TID #180 tab 07/03/22 - LABS Result Diagrams: 06/28/22 05:45 07/02/22 05:11
[2022-07-03] MEDS: APIXABAN 5 MG TABLET PO SCH (09:29)
[2022-07-03] MEDS: FAMOTIDINE 20 MG TABLET PO SCH (09:29)
[2022-07-03] MEDS: POTASSIUM CHLORIDE 20 MEQ TABLET PO SCH (09:29)
[2022-07-03] MEDS: FUROSEMIDE 40 MG/4 ML VIAL IVP SCH (10:18)
[2022-07-03] MEDS: polyethylene glycoL 3350 17 GM PACKET PO SCH (10:18)
[2022-07-03 10:43] VITALS: BP 86/61
== END 2022-07-03 12:00 | disposition home health service (06) | DRG 308 ==
LOC: ED 15:04 → ICU 06-26 08:24 → MS2 07-01 09:07
PROVIDERS: ADMIT Internal Medicine; ATTEND Specialist
DX: I48.19 Other persistent atrial fibrillation (principal); I21.4 Non-ST elevation (NSTEMI) myocardial infarction; I50.9 Heart failure, unspecified; I48.91 Unspecified atrial fibrillation; Z20.822 Contact with and (suspected) exposure to COVID-19; I50.23 Acute on chronic systolic (congestive) heart failure; E87.1 Hypo-osmolality and hyponatremia; I42.0 Dilated cardiomyopathy; I48.92 Unspecified atrial flutter; F41.9 Anxiety disorder, unspecified; H91.93 Unspecified hearing loss, bilateral; H54.8 Legal blindness, as defined in USA; T45.516A Underdosing of anticoagulants, initial encounter; R11.0 Nausea; R42 Dizziness and giddiness; R77.8 Other specified abnormalities of plasma proteins; Z66 Do not resuscitate; Z91.128 Patient's intentional underdosing of medication regimen for other reason; Z91.14 Patient's other noncompliance with medication regimen
CPT/HCPCS: 36415; 71045; 80048; 80053; 82330; 83735; 83880; 84100; 84443; 84484; 85025; 85027; 85610; 85730; 87150; 87635; 93005; 93306; 96365; 96366; 96368; 96375; 96376; 97116; 97162; 97166; 97530; 99291; A9270; J1650

== ENCOUNTER 2023-11-29 13:46 | Outpatient (CLI) | payer MEDICARE, OTHER ==
[~2023-11-29 13:46] MED LIST: LIDOCAINE 1%-EPI 1:100000 20 ML MDV ONE; LIDOCAINE-MPF 1% 5 ML VIAL ONE
[2023-11-29] MEDS: LIDOCAINE-MPF 1% 5 ML VIAL TD ONE (16:12)
[2023-11-29] MEDS: LIDOCAINE 1%-EPI 1:100000 20 ML MDV SUBQ ONE (16:12)
--- NOTE | 2023-12-01 13:53 | Ultrasound Report ---
ULTRASOUND GUIDED BIOPSY LEFT BREAST: 11/29/2023 CLINICAL: Left axillary node biopsy. PATIENT CONSENT: Risks (minor bleeding, infection, vasovagal reaction and repeat procedure), benefits and alternatives were explained to the patient and written informed consent was obtained. Correlation is made to exams dated: 10/05/2023 ultrasound and 10/05/2023 mammogram - [facility]. An ultrasound guided biopsy using real-time ultrasound was performed for the concerning lymph node lo cated in the left axillary tail. This was described on the previous ultrasound report. The skin was prepped in the usual manner. Local anesthetic was administered to the access site. A skin brittni was made in the breast. An 18 gauge biopsy needle was placed adjacent to the abnormality under ultrasou nd guidance. Once the needle was documented to be in the correct location, a specimen was obtained u sing a [employer] biopsy device. A skin closure strip and a sterile dressing were applied to the access si te. The specimen was sent to the laboratory for pathological analysis. IMPRESSION: ULTRASOUND GUIDED BIOPSY MALIGNANT Ultrasound guided biopsy of the lymph node in the left axillary tail was successful. Procedure perfor med by Dr. Celina Viera. Pathology indicates malignant metastatic carcinoma consistent with antonia st primary. Pathology results are concordant with imaging findings. A surgical/oncologic consultati on is recommended. Results and recommendations will be communicated to the ordering provider's offic e. This exam was interpreted at Station ID: [id number]. Yecenia hathaway/:12/01/2023 11:31:04 BI-RADS CATEGORY: () - Unspecified - other recall n/a LATERALITY: (B)
--- NOTE | 2023-12-01 13:53 | Ultrasound Report ---
ULTRASOUND GUIDED BIOPSY LEFT BREAST USING VACUUM DEVICE WITH MARKING DEVICE INSERTED AND POST DIGITA L MAMMOGRAPHIC IMAGIN11/29/2023 CLINICAL: Left breast mass. PATIENT CONSENT: Risks (minor bleeding, infection, vasovagal reaction and repeat procedure), benefits and alternatives were explained to the patient and written informed consent was obtained. Correlation is made to exams dated: 11/29/2023 mammogram, 10/05/2023 ultrasound, and 10/05/2023 mammogr - [facility]. An ultrasound guided biopsy using real-time ultrasound was performed for the irregular shaped mass lo cated in the left breast at 2 o'clock middle depth. This was described on the previous ultrasound re port. The skin was prepped in the usual manner. Local anesthetic was administered to the access sit e. A skin brittni was made in the breast. A 13 gauge biopsy needle was placed adjacent to the abnormal ity under ultrasound guidance. Once the needle was documented to be in the correct location, four sp ecimens were obtained using the [employer] biopsy system. A clip was inserted into the biopsy cavity. A skin closure strip and a sterile dressing were applied to the access site. Post procedure digita l mammographic imaging demonstrates the location device at the targeted area. The specimens were sen t to the laboratory for pathological analysis. IMPRESSION: ULTRASOUND GUIDED BIOPSY MALIGNANT Ultrasound guided biopsy of the mass in the left breast at 2 o'clock middle depth was successful. Procedure was perfromed by Dr. Celina Viera. Pathology indicates malignant invasive ductal carcinoma (ID). Pathology results are concordant with imaging findings. A surgical/oncologic consultation is recommended. Results and recommendations will be communicated to the ordering provider's office. This exam was interpreted at Station ID: [id number]. Yecenia hathaway/:12/01/2023 11:26:18 BI-RADS CATEGORY: () - Unspecified - other recall n/a LATERALITY: (B)
--- NOTE | 2023-12-01 13:53 | Mammography Report ---
UNILATERAL LEFT DIGITAL DIAGNOSTIC MAMMOGRAM 3D/2D - LEFT BREAST POST-PROCEDURE IMAGING FOR MARKER PL ACEMENT: 11/29/2023 CLINICAL: Post left breast ultrasound biopsy clip placement imaging. Comparison is made to exams dated: 10/05/2023 mammogram and 10/05/2023 ultrasound - [facility]. There are scattered areas of fibroglandular density in the left breast (category b / 25%-50% glandula r tissue). There is a marker clip in the appropriate position in the left breast at 2 o'clock middle depth. Thi s marker clip placement is at the biopsy site. IMPRESSION: POST PROCEDURE MAMMOGRAM FOR MARKER PLACEMENT There was a successful marker clip placement in the left breast middle depth. This exam was interpreted at Station ID: [id number]. NOTE: For mammograms, a report in lay terms will be sent to the patient. Approximately 15% of breast malignancies will not be visualized mammographically. In the management of a palpable breast mass, a negative mammogram must not discourage biopsy of a clinically suspicious lesion. Electronically Signed By: Yecenia hathaway/jacky:12/01/2023 11:30:35 ACR BI-RADS Category Post-procedure mammogram for marker placement PARENCHYMAL PATTERN: (A) - The breast(s) demonstrate(s) scattered fibroglandular densities. BI-RADS CATEGORY: () - Unspecified - other recall n/a LATERALITY: (B)
== END 2023-11-29 13:47 | disposition home or self-care (01) ==
LOC: DI 13:46
PROVIDERS: ATTEND Internal Medicine
DX: R92.322 Mammographic fibroglandular density, left breast (principal); D05.82 Other specified type of carcinoma in situ of left breast; C50.412 Malignant neoplasm of upper-outer quadrant of left female breast; Z17.0 Estrogen receptor positive status [ER+]; C79.89 Secondary malignant neoplasm of other specified sites
CPT/HCPCS: 19083; 38505

== ENCOUNTER 2024-03-07 13:10 | Outpatient (CLI) | payer MEDICARE, OTHER ==
[~2024-03-07 13:10] MED LIST changes: +GADOTERATE MEGLUMINE 10 MMOL/20 ML VIAL ONE; -LIDOCAINE 1%-EPI 1:100000 20 ML MDV ONE; -LIDOCAINE-MPF 1% 5 ML VIAL ONE
[2024-03-07 14:01] LABS: CREATININE 1.6 mg/dL (0.6-1.3)
[2024-03-07] MEDS: GADOTERATE MEGLUMINE 10 MMOL/20 ML VIAL IVP ONE (15:01)
--- NOTE | 2024-03-08 10:38 | MRI Report ---
BREAST MRI OF BOTH BREASTS: 03/07/2024 CLINICAL: Bilateral breast lumps. PROCEDURE: Breast BL W/WO INDICATIONS: LEFT BREAST CA CONTRAST: clariscan 15.8 ml TECHNIQUE: The patient was placed prone in a dedicated breast imaging coil. Precontrast axial STIR and 3D spoil ed GE without fat saturation sequences were obtained. Both before and after bolus injection of contr ast, sequential 1-minute axial 3D spoiled GE with fat saturation sequences for 3 time points, with morejon btraction images and maximum intensity projections (MIP's) generated. Delayed sagittal spoiled GE im ages with fat saturation were also obtained. Computer-aided detection, including computer algorithm analysis of MRI image data for lesion detectio n and characterization, pharmacokinetic analysis, with further physician review for interpretation, w as performed. COMPARISON: Mammogram 10/05/2023, ultrasound 10/05/2023, biopsy 11/29/2023 FINDINGS: Image quality: Diagnostic There is minimal background parenchymal enhancement. There is scattered fibroglandular tissue. Right breast: In the upper outer quadrant of the right breast middle depth, there is an irregular ma ss with spiculated margins measuring 1.6 x 1.1 x 1.7 cm. No suspicious lymph nodes are seen by size c riteria on the right. No other suspicious mass, focus, or nonmass enhancement. Left breast: In the upper outer quadrant of the left breast posterior depth, there is an irregular m ass with spiculated margins and biopsy clip measuring 2.1 x 2.2 x 2.0 cm. Size is likely similar comp ared to ultrasound from 10/05/2023. In the left axillary tail, there is a 5 mm lymph node, with biopsy clip. Both of these findings are biopsy-proven malignancy. Miscellaneous: The partially visualized anterior mediastinal and upper abdomen are unremarkable. No other pathologic lymph nodes by size criteria in the [id number]. IMPRESSION: HIGHLY SUGGESTIVE OF MALIGNANCY In the right breast, upper outer quadrant middle depth, there is an irregular mass with spiculated ma rgins measuring 1.7 x 1.6 cm. This is highly suspicious for contralateral synchronous malignancy. Rec ommend ultrasound for confirmation. Biopsy should be considered if clinically indicated. Right breast: BI-RADS 5 Left breast upper outer quadrant posterior depth irregular mass with spiculated margins corresponding to biopsy-proven malignancy. Additional small lymph node also corresponding to metastatic malignancy . The primary mass sonographic measurements are similar to prior. The small lymph node is likely smal ler than prior ultrasound. Left breast: BIRADS 6 This exam was interpreted at Station ID: [id number]. Electronically Signed By: Jose Langley M.D. lc/:03/08/2024 09:04:00 Entry: ka - 03/08/2024 10:09:04 ACR BI-RADS Category 5: Highly suggestive of malignancy 3345F BI-RADS CATEGORY: (5) - 5 Ultrasound [id number] Immediate follow-up LATERALITY: (B)
== END 2024-03-07 13:11 | disposition home or self-care (01) ==
LOC: LAB 13:10
PROVIDERS: ATTEND Internal Medicine
DX: C50.412 Malignant neoplasm of upper-outer quadrant of left female breast (principal); Z79.899 Other long term (current) drug therapy; N63.11 Unspecified lump in the right breast, upper outer quadrant; C77.3 Secondary and unspecified malignant neoplasm of axilla and upper limb lymph nodes
CPT/HCPCS: 36415; 77049; 82565; A9575